=== PATIENT | female | born 1935 | race Asian ===

== ENCOUNTER 2022-07-06 14:15 | Outpatient (CLI) | payer OTHER, SELFPAY ==
--- NOTE | 2022-07-06 14:23 | MM_ITS ---
WS: [id number] BILATERAL 3D TOMOSYNTHESIS DIGITAL DIAGNOSTIC MAMMOGRAPHY WITH CAD CLINICAL INFORMATION: RT BREAST LUMP HISTORY: RIGHT breast lump COMPARISON: None. TECHNIQUE: Bilateral CC, MLO, and ML views. FINDINGS: Scattered fibroglandular densities bilaterally. Spiculated asymmetric density upper outer RIGHT breas t posterior depth. Palpable concern with associated calcifications. This measures approximately 1.7 x 1.4 CM.Suspicious heterogeneous calcification within the central aspect of the lesion. Spiculated ma ss abuts the chest wall posteriorly. Consider MRI to evaluate for chest wall invasion. Additional ill-defined mass posterior to the RIGHT nipple measuring 1.5 cm. This corresponds to inc idental ductal ectasia on the ultrasound. Vascular calcification. LEFT breast is unremarkable. Ultrasound described below. ULTRASOUND BREAST RIGHT TECHNIQUE: Ultrasound right breast focused area of concern. CLINICAL INFORMATION: RT BREAST LUMP FINDINGS: Ultrasound RIGHT breast 11:00 position 1 cm from the nipple near a palpable concern. There is a solid irregular mass with vascularity measuring 2.1 x 1.1 x 1.8 cm highly suspicious for neoplasm. This ex tends superficial just deep to the skin surface. In addition, this abuts the underlying pectoralis mu scle with indentation suspicious for chest wall involvement. Consider MRI breast for better anatomic detail. Ultrasound posterior to the RIGHT nipple demonstrates ductal ectasia. This has a benign appearance. Normal lymph nodes in the RIGHT axilla. MM/[id number] IMPRESSION:Spiculated mass abuts the pectoralis muscle posteriorly. Consider MR I to evaluate for chest wall invasion. BI-RADS: 5-Highly Suggestive of Malignancy FOLLOW UP: US Guided Biopsy Recommended Recommend ultrasound-guided biopsy of the RIGHT breast mass
== END 2022-07-06 14:16 | disposition home or self-care (01) ==
LOC: RAD 14:18
PROVIDERS: PCP Internal Medicine; Visit Provider Internal Medicine
DX: N63.11 Unspecified lump in the right breast, upper outer quadrant (principal)
CPT/HCPCS: 76642; 77062; G0279

== ENCOUNTER 2022-08-12 10:53 | Outpatient (CLI) | payer OTHER, SELFPAY ==
--- NOTE | 2022-08-12 11:13 | US_ITS ---
WS: [id number] ULTRASOUND-GUIDED RIGHT BREAST BIOPSY HISTORY: ABNORMAL MAMMO, mass at 11:00 RIGHT breast. COMPARISON: 07/06/2022 Procedure, risks and complications are explained to the patient. Medications are reviewed. Consent is obtained. The mass in the RIGHT breast is localized with ultrasound. Mass localizes to 11:00, 1 cm from the nip ple. Skin is cleansed with ChloraPrep and anesthetized with 1% buffered lidocaine. Small dermatome is made. Under sterile conditions mass is biopsied with a 14-gauge Achieve needle. Multiple core biopsi es are performed. Material placed in formalin and sent to pathology for review. No complications enco untered. Breast tissue marker (Bard ultrasound enhanced ribbon): Single. Patient left the radiology suite with no complications. Patient is instructed to return to [facility] concerns. US/[place] [id number] IMPRESSION: 1. Uncomplicated core needle biopsy RIGHT breast mass at 11:00. 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 Breast profile t o be reported separately. RECOMMENDATION: Follow-up with oncology and breast surgeon.
[2022-08-17 10:57] LABS: Breast Profile ER,PR,HER2,Ki-6 See Report
== END 2022-08-12 10:54 | disposition home or self-care (01) ==
PROVIDERS: PCP Internal Medicine; Visit Provider Internal Medicine
DX: C50.411 Malignant neoplasm of upper-outer quadrant of right female breast (principal); N63.11 Unspecified lump in the right breast, upper outer quadrant; R92.8 Other abnormal and inconclusive findings on diagnostic imaging of breast
CPT/HCPCS: 19083; 88305; 88361; 88374

== ENCOUNTER 2022-09-09 14:35 | Oncology outpatient (recurring) (ONCR) | payer OTHER, SELFPAY | END 2022-09-21 23:59 | disposition home or self-care (01) | PROVIDERS: PCP Internal Medicine; Visit Provider Internal Medicine Hematology & Oncology | DX: Z53.9 Procedure and treatment not carried out, unspecified reason (principal) ==

== ENCOUNTER 2022-09-14 07:14 | Day surgery (SDC) | payer OTHER, SELFPAY ==
[2022-09-11 09:04] VITALS: BMI 19.2
[2022-09-14] VITALS (10 sets, daily range): BP systolic 103–146; BP diastolic 58–77; PULSE 66–76; RESP 10–18; TEMP 36.1–36.3; O2SAT 94–100
[2022-09-14] MEDS: sodium chloride 0.9% 1,000 ML 100 ML IV (07:38)
[2022-09-14] MEDS: sodium chloride 0.9% 1,000 ML 30 ML IV (07:49)
--- NOTE | 2022-09-14 08:06 | ANES.PREANE2 ---
Pre-Anesthetic Assessment Height/Weight: Height 1.45 m Weight 40.37 kg Temp Pulse Resp BP Pulse Ox O2 Del Method 97.3 F L 66 18 146/77 99 Room Air 09/14/22 07:35 09/14/22 07:35 09/14/22 07:35 09/14/22 07:35 09/14/22 07:35 09/14/22 07:35 Operation Date: 09/14/22 08:55 [place] [id number] right breast simple mastectomy with sentinel lymph node biopsy C50.911,(Right) - Alex Santana DO s Sentinal Lymph Node Biopsy(Right) - Alex Santana DO Familial anesthetic complications: None Was Beta Johnathan taken within 24 hours: N/A Was Clonidine taken within 24 hours: N/A Last intake: Intake Last Liquid Date 09/13/22 Last Liquid Time 21:00 Last Solid Date 09/13/22 Last Solid Time 20:00 Social No alcohol and No tobacco Exam alert, oriented x 3, clear to auscultation bilaterally and regular rate & rhythm Airway Mallampati: Class III Dentition: full GI Gastroesophageal Reflux Disease Anesthetic Plan ASA status: 2 Anesthesia: General Risk of > 500 ml blood loss (7ml/kg in children): No Medications/Allergies Home Medications Medication Instructions Recorded Confirmed Last Taken Type mirtazapine 7.5 mg tablet See Rx Instructions PO DAILY 09/09/22 09/14/22 09/13/22 History omeprazole 20 mg capsule,delayed 20 mg PO DAILY 09/09/22 09/14/22 09/11/22 History release Allergies Allergy/AdvReac Type Severity Reaction Status Date / Time No Known Allergies Allergy Verified 09/14/22 07:28 Current Medications Generic Name Dose Route Start Last Admin Trade Name Freq PRN Reason Stop Dose Admin Sodium Chloride 1,000 mls @ 30 mls/hr 09/14/22 07:30 09/14/22 07:49 Sodium Chloride 0.9% IV 09/15/22 07:29 30 mls/hr .Q24H LORIE Administration PFSH Anesthesia Medical History No pertinent past medical history Denies diabetes, asthma, hypertension, seizures, DVT/PE PCP: None Surgical History No history of previous surgery Family History Daughter Thyroid condition Denies family history of Colon cancer Ovarian cancer Diabetes Heart disease Hyperlipidemia Breast cancer Hypertension Uterine cancer Stroke Data Anesthesia Cardiac Studies: No Data to Display
--- NOTE | 2022-09-14 08:46 | W.PM.OPSUD ---
Surgery/Procedure H&P Update DATE OF PROCEDURE: September 14, 2022 DATE H&P PERFORMED: 09/01/22 H&P UPDATE INFORMATION: I have reviewed H&P completed within last 30 days, I have examined patient prior to procedure and No changes to prior documentation PLANNED PROCEDURE: Operation Date: 09/14/22 08:55 Proposed Procedures p [id number] right breast simple mastectomy with sentinel lymph node biopsy C50.911,(Right) - Alex Santana DO s Sentinal Lymph Node Biopsy(Right) - Alex Santana DO
--- NOTE | 2022-09-14 08:51 | PC.NURSE ---
Right breast sentinel node injection of 0.93 mCi Tc99m Tilmanocept by Qi Argueta [facility] completed at 0820 with no complications.
[2022-09-14] MEDS: ceFAZolin 2,000 MG in sodium chloride 0.9% (plus) 50 ML 100 MG IV (09:29)
[2022-09-14] MEDS: lidocaine-epi 2% 20 mL INJ INJECTION (09:43)
[2022-09-14] MEDS: isosulfan blue 10 mg/mL SDV 5mL 50 MG SUBCUT (09:43)
--- NOTE | 2022-09-14 10:33 | P.OP_ITS ---
Operative Report Date of procedure: September 14, 2022 Pre-op diagnosis: Right breast cancer Post-op diagnosis: same Procedure done: Right simple mastectomy with sentinel lymph node biopsy Implants: Vistaseal Specimens removed/disposition: Right axillary sentinel lymph node biopsy-3 nodes Right simple mastectomy Surgeon: Dr. Alex Santana DO Anesthesia: General Estimated blood loss (mL): 50 Complications: None apparent Brief History: This very pleasant 87-year-old female was found to have right breast cancer. We decided to proceed with right simple mastectomy and sentinel lymph node biopsy. The risk and benefits were explained and documented. Procedure: The patient was wheeled into the operative room and placed on the OR table in the supine position. The right breast and axilla were inspected prepped and draped in the usual sterile fashion. A timeout was performed. All present were in agreement. Lymphazurin blue was injected subareolarly and into the mass. These areas were massaged for 5 minutes. An oblique excision was made from proximal to the right axilla to lateral to the sternum, encompassing the nipple. The lateral dissection was performed first. I dissected down to the latissimus dorsi and superior to the fascia using Bovie cautery. Using Bovie cautery and [place] counter I looked for a sentinel node. The [place] counter at the mass was registering at 905 and 3 sentinel lymph nodes were identified measuring 97, 99 and 112. The lymph nodes were relatively small and not blue.. The lymph nodes were removed with Bovie cautery, clipping any small arteries, and sent to pathology. Attention was then brought back to the mastectomy. The ellipse excision thatwas made with a 10 blade scalpel was carried down to the fatty tissue with Bovie cautery. I started with the superior flap and removed all the breast tissue using Bovie cautery. This was carried up to the clavipectoral fascia and down to the pectoralis major. All breast tissue was removed laterally to the latissimus dorsi and proximally to the sternum. I then went to the posterior flap all breast tissue was removed with Bovie cautery down to the inframammary fold. The breast was quite small and the mass was very large in comparison. I did not encounter the mass but was close to it on the posterior margin.. I carried the dissection down to the pectoralis major and removed all the breast tissue in its entirety. Hemostasis was achieved with electrocautery and medium sized clips. The breast was removed and a single stitch thakur superior and long stitch to rudi lateral. Skin was anterior.. The specimen was passed off. The surgical field was irrigated and suctioned. There was no signs of bleeding. Vistaseal was placed over the surgical field, as was Wil.. Dermis was then approximated with 3-0 Vicryl in interrupted fashion. Skin was then closed with 4-0 Vicryl in a subcuticular running fashion. Patient tolerated the procedure well and was wheeled in the postoperative anesthesia care unit in good condition.
--- NOTE | 2022-09-14 11:55 | ANE.PACU2 ---
Inpatient post-anesthesia follow up: Airway intact: Yes Vital signs: Temperature 97 F Pulse Rate 73 Respiratory Rate 16 Blood Pressure 107/63 Pulse Oximetry 94 Oxygen Delivery Me thod Room Air Oxygen Flow Rate 6 Fraction of Inspir ed Oxygen Hydration adequate: Yes Nausea and vomiting: No Pain level: 1 Mental status: Baseline
[2022-09-14] MEDS: HYDROcodone-acetaminophen 5-325 mg Tablet 1 TAB PO (12:03)
== END 2022-09-14 12:33 | disposition home or self-care (01) ==
PROVIDERS: PCP Internal Medicine; Visit Provider Surgery
PROC: (CPT 19303; principal; 2022-09-14 08:55)
PROC: (CPT 19303; 2022-09-14 08:55)
DX: C50.411 Malignant neoplasm of upper-outer quadrant of right female breast (principal); Z17.0 Estrogen receptor positive status [ER+]; K21.9 Gastro-esophageal reflux disease without esophagitis
CPT/HCPCS: 19303; 38525; 38792; 88307; 88309; 88342; A9520; J0690; J1100; J2371; J2405; J2704; J3010; J7030; Q9968

== ENCOUNTER 2022-09-23 14:37 | Oncology outpatient (recurring) (ONCR) | payer OTHER, MEDICAID, SELFPAY ==
[2022-09-23 14:39] VITALS: BP 111/67; PULSE 77; RESP 16; TEMP 36.7; O2SAT 98
[2022-09-23 14:43] VITALS: BMI 19.7
[2022-09-23 14:46] LABS: Basophils % 0.6 %; Eosinophils # 0.1 10^3/uL (0.0-0.8); Eosinophils % 2.7 %; Hematocrit 37.2 % (37.0-47.0); Hemoglobin 12.1 g/dL (11.5-15.3); Lymphocytes # 1.3 10^3/uL (0.8-4.8); Lymphocytes % 24.5 %; Mean Corpuscular HGB Conc 32.5 g/dL (30.0-36.0); Mean Corpuscular Hemoglobin 32.8 pg (28.0-34.0); Mean Corpuscular Volume 100.8 fl (81-99); Monocytes # 0.4 10^3/uL (0.2-0.9); Monocytes % 7.8 %; Neutrophils # 3.38 10^3/uL (1.8-7.7); Nucleated Red Blood Cells % 0 %; Platelet Count 252 10^3/cmm (130-400); Red Blood Count 3.69 10^6/uL (4.1-5.3); Red Cell Distribution Width 12.6 % (12.1-15.1); White Blood Count 5.3 10^3/uL (4.0-10.0)
[2022-09-23 15:12] LABS: Alanine Aminotransferase 45 U/L (0-33); Albumin Level 3.6 g/dL (3.5-5.2); Alkaline Phosphatase 61 U/L (35-105); Anion Gap 10.5 (5-19); Aspartate Amino Transferase 36 U/L (0-32); Blood Urea Nitrogen 26 mg/dL (8-23); Calcium 8.4 mg/dL (8.5-10.5); Carbon Dioxide 28 mmol/L (22-29); Chloride 104 mmol/L (98-107); Globulin 2.7 g/dL (1.3-4.6); Glucose 126 mg/dL (65-115); Osmolality Calculated 292 mOsm/kg (285-295); Potassium 4.5 mmol/L (3.5-5.1); Sodium 138 mmol/L (136-145); Total Bilirubin 0.2 mg/dL (0.15-1.2); Total Protein 6.3 g/dL (6.6-8.7)
[2022-09-24 09:30] LABS: 25 Hydroxy Vitamin D 34 ng/mL (30-100)
== END 2022-10-22 23:59 | disposition home or self-care (01) ==
PROVIDERS: Internal Medicine Medical Oncology; PCP Internal Medicine; Visit Provider Internal Medicine Hematology & Oncology
DX: M81.0 Age-related osteoporosis without current pathological fracture (principal); C50.911 Malignant neoplasm of unspecified site of right female breast; Z53.9 Procedure and treatment not carried out, unspecified reason
CPT/HCPCS: 36415; 80053; 82306; 85025

== ENCOUNTER 2022-11-02 20:47 | Emergency (ER) | payer OTHER, MEDICAID, SELFPAY ==
[2022-11-02 20:51] VITALS: BP 96/61; PULSE 89; RESP 16; TEMP 36.4; O2SAT 96; BMI 19.5
[2022-11-02 22:27] LABS: Basophils % 0.3 %; Eosinophils # 0.1 10^3/uL (0.0-0.8); Eosinophils % 1.2 %; Hematocrit 44.6 % (36-47); Lymphocytes # 0.3 10^3/uL (0.8-4.8); Lymphocytes % 4.1 %; Mean Corpuscular HGB Conc 32.5 g/dL (30-55); Mean Corpuscular Hemoglobin 32.8 pg (27-33); Mean Corpuscular Volume 100.9 fl (85-98); Mean Platelet Volume 9.8 fL (7.4-10.4); Monocytes # 0.5 10^3/uL (0.2-0.9); Neutrophils # 6.44 10^3/uL (1.8-7.7); Neutrophils % 87.3 %; Nucleated Red Blood Cells % 0 %; Platelet Count 195 10^3/cmm (157-399); Red Blood Count 4.42 10^6/uL (3.85-5.65); Red Cell Distribution Width 12.3 % (12.1-15.1); White Blood Count 7.38 10^3/uL (3.29-11.43)
--- NOTE | 2022-11-02 22:36 | ED_ITS ---
HPI - Nausea/Vomiting/Diarrhea General: Chief complaint: Nausea/Vomiting/Diarrhea Stated complaint: vomiting Time Seen by Provider: 11/02/22 22:31 Limitations: language barrier (Daughter at bedside acting as diplomatic interpreter/translator) History of Present Illness: Patient states she is having nausea vomiting diarrhea at least 3 episodes of each since approximately 6 PM this afternoon. Patient says this is caused her to be very weak with no energy. Patient does have a history of breast cancer and has had a recent double mastectomy Review of Systems General: Reports: 10 or more systems reviewed and unremarkable except in HPI and below PFSH ED PFSH: Medical History Breast cancer GERD (gastroesophageal reflux disease) Osteoporosis Uterovaginal prolapse Surgical History History of right breast biopsy (08/12/22) History of right mastectomy (09/14/22) Right simple mastectomy with axillary sentinel lymph node biopsy Family History Daughter Thyroid condition Denies family history of Colon cancer Ovarian cancer Diabetes Heart disease Hyperlipidemia Breast cancer Hypertension Uterine cancer Stroke Social History Smoking and tobacco status: never smoked Alcohol intake: never Substance/Drug Use: never Physical Exam Const: COMMON NORMALS: no acute distress, average body habitus, patient oriented x3, no limitations, healthy appearing, alert and well nourished HENMT: COMMON NORMALS: normocephalic, atraumatic, hearing grossly normal bilaterally, external ears normal, Normal external nose present and moist oral mucous membranes HEAD & SCALP: normocephalic and atraumatic NOSE: Normal external nose present EXTERNAL EAR: Yes external ears normal Eye: COMMON NORMALS: Equal, round and reactive pupils present, EOMs intact bilaterally, conjunctivae normal and no scleral icterus CONJUNCTIVA: Yes conjunctivae normal PUPIL: Yes Equal, round and reactive pupils present Neck/C-Spine: COMMON NORMALS: full ROM, no lymphadenopathy, supple, no meningeal signs, no JVD and Thyroid normal THYROID: Thyroid normal Resp: COMMON NORMALS: normal respiratory effort, No retractions, No use of accessory muscles and clear to auscultation bilaterally AUSCULTATION: clear to auscultation bilaterally Cardio: COMMON NORMALS: no JVD, regular rate, regular rhythm, S1 normal heart sound present, S2 normal heart sound present, No gallops present (Cardio), No cl icks present (Cardio), No murmurs present (Cardio) and No rub (Cardio) RATE: regular rate RHYTHM: regular rhythm HEART SOUNDS: S1 normal heart sound present and S2 normal heart sound present GI: COMMON NORMALS: Normal to inspection, nondistended, normoactive bowel sounds present, Soft to palpation, non-tender, No hepatosplenomegaly present and no masses PALPATION: Yes Soft to palpation and Yes No hepatosplenomegaly present : COMMON NORMALS: Yes no CVA tenderness BLADDER/KIDNEY EXAM: Yes no CVA tenderness Back/Pelvis: COMMON NORMALS: no CVA tenderness Neuro: COMMON NORMALS: patient oriented x3 SENSORIUM/ORIENTATION: Yes alert MENINGEAL SIGNS: Yes no meningeal signs Course Vital Signs: Vital signs: Vital Signs Temperature 97.6 F 11/02/22 20:51 Pulse Rate 71 11/02/22 23:35 Respiratory Rate 16 11/02/22 23:35 Blood Pressure 150/69 11/02/22 23:35 Pulse Oximetry 97 11/02/22 23:35 Oxygen Delivery Me thod Room Air 11/02/22 23:35 MDM - Nausea/Vomiting/Diarrhea Medical Decision Making Patient received 4 mg Zofran and a liter normal saline while waiting her lab work to come back which was essentially benign. Patient states she feels much better and is ready to go home. Patient be discharged home with a diagnosis of gastroenteritis Differential Diagnosis Likely gastroenteritis; Unlikely traveler's diarrhea, food poisoning, clostridium difficile infection, drug-induced nausea and vomiting or dehydration Medical Records I reviewed the patient's medical records. Lab Data I reviewed the patient's lab results. 11/02/22 22:07 11/02/22 22:07 Laboratory Results WBC 7.38 10^3/uL (3.29-11.43) 11/02/22 22:07 RBC 4.42 10^6/uL (3.85-5.65) 11/02/22 22:07 Hgb 14.50 g/dL (11.27-16.99) 11/02/22 22:07 Hct 44.6 % (36-47) 11/02/22 22:07 MCV 100.9 fl (85-98) H 11/02/22 22:07 MCH 32.8 pg (27-33) 11/02/22 22:07 MCHC 32.5 g/dL (30-55) 11/02/22 22:07 RDW 12.3 % (12.1-15.1) 11/02/22 22:07 Plt Count 195 10^3/cmm (157-399) 11/02/22 22:07 MPV 9.8 fL (7.4-10.4) 11/02/22 22:07 Neut % (Auto) 87.3 % 11/02/22 22:07 Lymph % (Auto) 4.1 % 11/02/22 22:07 [place] % (Auto) 7.0 % 11/02/22 22:07 Eos % (Auto) 1.2 % 11/02/22 22:07 Baso % (Auto) 0.3 % 11/02/22 22:07 Neut # (Auto) 6.44 10^3/uL (1.8-7.7) 11/02/22 22:07 Lymph # (Auto) 0.3 10^3/uL (0.8-4.8) L 11/02/22 22:07 [place] # (Auto) 0.5 10^3/uL (0.2-0.9) 11/02/22 22:07 Eos # (Auto) 0.1 10^3/uL (0.0-0.8) 11/02/22 22:07 Baso # (Auto) 0.0 10^3/uL (0.0-0.1) 11/02/22 22:07 Nucleated RBC % (auto) 0 % 11/02/22 22:07 Nucleated RBCs # 0.0 /100WBC 11/02/22 22:07 Sodium 139 mmol/L (136-145) 11/02/22 22:07 Potassium 4.2 mmol/L (3.5-5.1) 11/02/22 22:07 Chloride 105 mmol/L (98-107) 11/02/22 22:07 Carbon Dioxide 25 mmol/L (22-29) 11/02/22 22:07 Anion Gap 13.2 (5-19) 11/02/22 22:07 BUN 32 mg/dL (8-23) H 11/02/22 22:07 Creatinine 0.7 mg/dL (0.5-0.9) 11/02/22 22:07 GFR Calculation Not Reportable 11/02/22 22:07 Glucose 177 mg/dL (65-115) H 11/02/22 22:07 Calculated Osmolality 299 mOsm/kg (285-295) H 11/02/22 22:07 Calcium 8.7 mg/dL (8.5-10.5) 11/02/22 22:07 Magnesium 2.2 mg/dL (1.7-2.3) 11/02/22 22:07 Total Bilirubin 0.5 mg/dL (0.15-1.2) 11/02/22 22:07 AST 24 U/L (0-32) 11/02/22 22:07 ALT 19 U/L (0-33) 11/02/22 22:07 Alkaline Phosphatase 62 U/L (35-105) 11/02/22 22:07 Total Protein 7.2 g/dL (6.6-8.7) 11/02/22 22:07 Albumin 4.1 g/dL (3.5-5.2) 11/02/22 22:07 Globulin 3.1 g/dL (1.3-4.6) 11/02/22 22:07 Urine Color Yellow (Yellow) 11/02/22 23:46 Urine Appearance Clear (CLEAR) 11/02/22 23:46 Urine pH 5 (5-7) 11/02/22 23:46 Ur Specific [place] 1.020 (1.005-1.030) 11/02/22 23:46 Urine Protein Neg (Negative) 11/02/22 23:46 Urine Glucose (UA) Norm (Normal) 11/02/22 23:46 Urine Ketones Negative (Negative) 11/02/22 23:46 Urine Blood Neg (Negative) 11/02/22 23:46 Urine Nitrate Negative (Negative) 11/02/22 23:46 Urine Bilirubin Neg (Negative) 11/02/22 23:46 Urine Urobilinogen Neg mg/dL (Negative) 11/02/22 23:46 Ur Leukocyte Esterase Negative (Negative) 11/02/22 23:46 Discharge Plan Discharge Patient Disposition: Home Clinical Impression: Gastroenteritis Condition: Stable Prescriptions: No Action omeprazole 20 mg capsule,delayed release(DR/EC) 20 mg PO DAILY mirtazapine 7.5 mg tablet See Rx Instructions PO DAILY Rx Instructions: dosage unknown orally daily; hydrocodone-acetaminophen 5-325 mg tablet 1 tab PO Q6H PRN (Reason: pain) Qty: 20 0RF Colace 100 mg capsule 100 mg PO BID Qty: 14 0RF Discharge Orders: Discharge ED (Routine); Ordered 11/03/22 Ordered By: Primo Hu Referrals: Aroldo Burger DO [Primary Care Provider] - 1 week Patient Instructions: Gastroenteritis (ED) Activity Restrictions/Additional Instructions: Please push plenty of clear fluids and advance diet as tolerated. Please follow-up with family practice physician within the next week or sooner as needed for further evaluation and treatment. Coding Level of Care Code ED Technical Cable Jointer for Masha Rivera
[2022-11-02] MEDS: ondansetron 2 mg/ML SDV 2 mL 4 MG IVP (22:46)
[2022-11-02] MEDS: sodium chloride 0.9% 1,000 ML 999 ML IV (22:47)
[2022-11-02 23:00] LABS: Magnesium 2.2 mg/dL (1.7-2.3)
[2022-11-02 23:02] LABS: Alanine Aminotransferase 19 U/L (0-33); Albumin Level 4.1 g/dL (3.5-5.2); Alkaline Phosphatase 62 U/L (35-105); Anion Gap 13.2 (5-19); Aspartate Amino Transferase 24 U/L (0-32); Blood Urea Nitrogen 32 mg/dL (8-23); Calcium 8.7 mg/dL (8.5-10.5); Carbon Dioxide 25 mmol/L (22-29); Chloride 105 mmol/L (98-107); Globulin 3.1 g/dL (1.3-4.6); Glucose 177 mg/dL (65-115); Osmolality Calculated 299 mOsm/kg (285-295); Potassium 4.2 mmol/L (3.5-5.1); Sodium 139 mmol/L (136-145); Total Bilirubin 0.5 mg/dL (0.15-1.2); Total Protein 7.2 g/dL (6.6-8.7)
[2022-11-02 23:35] VITALS: BP 150/69; PULSE 71; RESP 16; O2SAT 97
[2022-11-02 23:50] LABS: Add Urine Microscopic? NO; Charge for UA Resulting for Rev
[2022-11-02 23:55] LABS: Bilirubin Urine Neg (Negative); Blood Urine Neg (Negative); Glucose Urine UA Norm (Normal); Ketones Urine Negative (Negative); Leukocyte Esterase Urine Negative (Negative); Nitrate Urine Negative (Negative); Protein Urine Neg (Negative); Urine Appearance Clear (CLEAR); Urine Color Yellow (Yellow); Urobilinogen Urine Neg (Negative); pH Urine 5 (5-7)
== END 2022-11-03 00:19 | disposition home or self-care (01) ==
PROVIDERS: Emergency Provider Emergency Medicine; PCP Internal Medicine
DX: K52.9 Noninfective gastroenteritis and colitis, unspecified (principal); Z85.3 Personal history of malignant neoplasm of breast
CPT/HCPCS: 36415; 80053; 81003; 83735; 85025; 96361; 96374; 99284; J2405; J7030

== ENCOUNTER 2022-12-16 14:27 | Oncology outpatient (recurring) (ONCR) | payer OTHER, MEDICARE, MEDICAID, SELFPAY ==
[2022-12-16 14:34] VITALS: BP 106/51; PULSE 81; RESP 16; TEMP 36.3; O2SAT 96
[2022-12-16 14:48] LABS: Basophils % 0.6 %; Eosinophils # 0.1 10^3/uL (0.0-0.8); Eosinophils % 2.3 %; Hematocrit 39.1 % (36-47); Lymphocytes # 1.5 10^3/uL (0.8-4.8); Lymphocytes % 30.2 %; Mean Corpuscular HGB Conc 32.2 g/dL (30-55); Mean Corpuscular Hemoglobin 31.6 pg (27-33); Mean Platelet Volume 9.4 fL (7.4-10.4); Monocytes # 0.5 10^3/uL (0.2-0.9); Monocytes % 9.9 %; Neutrophils # 2.78 10^3/uL (1.8-7.7); Nucleated Red Blood Cells % 0 %; Platelet Count 212 10^3/cmm (157-399); Red Blood Count 3.99 10^6/uL (3.85-5.65); Red Cell Distribution Width 12.3 % (12.1-15.1); White Blood Count 4.87 10^3/uL (3.29-11.43)
[2022-12-16 15:05] LABS: Alanine Aminotransferase 12 U/L (0-33); Alkaline Phosphatase 56 U/L (35-105); Anion Gap 12.7 (5-19); Aspartate Amino Transferase 18 U/L (0-32); Blood Urea Nitrogen 19 mg/dL (8-23); Calcium 9.1 mg/dL (8.5-10.5); Carbon Dioxide 28 mmol/L (22-29); Chloride 104 mmol/L (98-107); Globulin 2.9 g/dL (1.3-4.6); Glucose 125 mg/dL (65-115); Osmolality Calculated 294 mOsm/kg (285-295); Potassium 4.7 mmol/L (3.5-5.1); Sodium 140 mmol/L (136-145); Total Bilirubin 0.4 mg/dL (0.15-1.2); Total Protein 6.9 g/dL (6.6-8.7)
== END 2022-12-22 23:59 | disposition home or self-care (01) ==
LOC: ONCMED 14:28
PROVIDERS: Internal Medicine Medical Oncology; PCP Internal Medicine; Visit Provider Internal Medicine Medical Oncology
DX: C50.411 Malignant neoplasm of upper-outer quadrant of right female breast
CPT/HCPCS: 36415; 80053; 85025

== ENCOUNTER 2023-04-05 12:43 | Oncology outpatient (recurring) (ONCR) | payer MEDICARE, MEDICAID, SELFPAY ==
[2023-04-02 11:16] LABS: Basophils % 0.7 %; Eosinophils # 0.1 10^3/uL (0.0-0.8); Eosinophils % 2.5 %; Lymphocytes % 24.9 %; Mean Corpuscular HGB Conc 32.8 g/dL (30-55); Mean Corpuscular Hemoglobin 32.2 pg (27-33); Mean Corpuscular Volume 98.3 fl (85-98); Mean Platelet Volume 9.8 fL (7.4-10.4); Monocytes # 0.4 10^3/uL (0.2-0.9); Monocytes % 8.6 %; Neutrophils # 2.56 10^3/uL (1.8-7.7); Neutrophils % 63.1 %; Nucleated Red Blood Cells % 0 %; Platelet Count 233 10^3/cmm (157-399); Red Blood Count 4.07 10^6/uL (3.85-5.65); Red Cell Distribution Width 12.3 % (12.1-15.1); White Blood Count 4.06 10^3/uL (3.29-11.43)
[2023-04-02 11:32] LABS: Alanine Aminotransferase 20 U/L (0-33); Albumin Level 3.8 g/dL (3.5-5.2); Alkaline Phosphatase 63 U/L (35-105); Anion Gap 11.3 (5-19); Aspartate Amino Transferase 25 U/L (0-32); Blood Urea Nitrogen 24 mg/dL (8-23); Calcium 8.8 mg/dL (8.5-10.5); Carbon Dioxide 29 mmol/L (22-29); Chloride 102 mmol/L (98-107); Globulin 3.4 g/dL (1.3-4.6); Glucose 79 mg/dL (65-115); Osmolality Calculated 289 mOsm/kg (285-295); Potassium 4.3 mmol/L (3.5-5.1); Sodium 138 mmol/L (136-145); Total Bilirubin 0.5 mg/dL (0.15-1.2); Total Protein 7.2 g/dL (6.6-8.7)
== END 2023-04-22 23:59 | disposition home or self-care (01) ==
PROVIDERS: Nurse Practitioner Family; PCP Internal Medicine; Visit Provider Internal Medicine Medical Oncology
DX: C50.411 Malignant neoplasm of upper-outer quadrant of right female breast (principal); Z17.0 Estrogen receptor positive status [ER+]; Z90.11 Acquired absence of right breast and nipple; R22.2 Localized swelling, mass and lump, trunk
CPT/HCPCS: 36415; 80053; 85025; 99214

== ENCOUNTER 2023-04-09 11:57 | Outpatient (CLI) | payer MEDICARE, MEDICAID, SELFPAY ==
--- NOTE | 2023-04-09 12:30 | US_ITS ---
WS: [id number] Ultrasound chest, limited. HISTORY: Chest wall palpable nodule. Prior mastectomy. Ultrasound is directed along the chest wall at the site of the palpable abnormality. There is an area of shadowing which may be partially calcified mass associated with the palpable abnormality. This so ft tissue nodule measures 5.6 mm and is in the superficial soft tissues anterior to a rib. No additio nal abnormalities. IMPRESSION: There is a focal area of shadowing and at least partial calcification in the soft tissues of the RIGH T chest wall measuring 5.6 mm. Very nonspecific by ultrasound. This can be further evaluated by chest CT.
== END 2023-04-09 11:58 | disposition home or self-care (01) ==
LOC: RAD 11:58
PROVIDERS: PCP Internal Medicine; Visit Provider Internal Medicine Medical Oncology
DX: C50.411 Malignant neoplasm of upper-outer quadrant of right female breast (principal); R22.2 Localized swelling, mass and lump, trunk; Z90.11 Acquired absence of right breast and nipple
CPT/HCPCS: 76604

== ENCOUNTER 2023-06-01 15:42 | Observation (INO) | payer MEDICARE, MEDICAID, SELFPAY ==
--- NOTE | 2023-05-31 11:18 | ANES.PREANE2 ---
Pre-Anesthetic Assessment Height/Weight: Height 1.42 m Operation Date: 06/01/23 11:50 Proposed Procedures p Total Vaginal Hysterectomy(Not Applicable) - Finesse Vance MD s Colporrhaphy Anterior and Posterior(Not Applicable) - Finesse Vance MD s Sling Single Incision Sling(Not Applicable) - Finesse Vance MD s Salpingo-Oophorectomy (Vaginal)(Bilateral) - Finesse Vance MD Familial anesthetic complications: NOne Social No alcohol and No tobacco Exam alert, oriented x 3, clear to auscultation bilaterally and regular rate & rhythm Airway Mallampati: Class I Dentition: full GI Gastroesophageal Reflux Disease Anesthetic Plan ASA status: 2 Anesthesia: General Risk of > 500 ml blood loss (7ml/kg in children): No Medications/Allergies Home Medications Medication Instructions Recorded Confirmed Last Taken Type mirtazapine 7.5 mg tablet See Rx Instructions PO DAILY 09/09/22 05/31/23 05/31/23 History omeprazole 20 mg capsule,delayed 20 mg PO DAILY 09/09/22 05/31/23 05/31/23 History release docusate sodium 100 mg capsule 100 mg PO BID #14 caps 09/14/22 05/27/23 Unknown Rx (Colace) Allergies Allergy/AdvReac Type Severity Reaction Status Date / Time No Known Allergies Allergy Verified 05/27/23 11:31 [facility] Anesthesia Medical History GERD (gastroesophageal reflux disease) Osteoporosis Breast cancer Uterovaginal prolapse Surgical History History of right mastectomy (09/14/22) Right simple mastectomy with axillary sentinel lymph node biopsy History of right breast biopsy (08/12/22) Family History Daughter Thyroid disease Denies family history of Colon cancer Ovarian cancer Diabetes Heart disease Hyperlipidemia Breast cancer Hypertension Uterine cancer Stroke Social History Smoking and tobacco/nicotine status: never used tobacco/nicotine Alcohol intake: never Substance/Drug Use: never Data Anesthesia Cardiac Studies: No Data to Display
[2023-05-31 11:59] LABS: Basophils % 0.4 %; Eosinophils # 0.1 10^3/uL (0.0-0.8); Eosinophils % 2.5 %; Lymphocytes % 20.7 %; Mean Corpuscular Hemoglobin 32.5 pg (27-33); Mean Corpuscular Volume 98.5 fl (85-98); Mean Platelet Volume 10.1 fL (7.4-10.4); Monocytes # 0.5 10^3/uL (0.2-0.9); Monocytes % 9.8 %; Neutrophils # 3.24 10^3/uL (1.8-7.7); Neutrophils % 66.4 %; Nucleated Red Blood Cells % 0 %; Platelet Count 227 10^3/cmm (157-399); Red Blood Count 4.06 10^6/uL (3.85-5.65); Red Cell Distribution Width 12.6 % (12.1-15.1); White Blood Count 4.88 10^3/uL (3.29-11.43)
[2023-05-31 12:11] LABS: Add Urine Microscopic? YES; Bilirubin Urine Neg (Negative); Blood Urine Neg (Negative); Glucose Urine UA Norm (Normal); Ketones Urine Negative (Negative); Leukocyte Esterase Urine Trace (Negative); Nitrate Urine Negative (Negative); Protein Urine Neg (Negative); Urine Appearance Clear (CLEAR); Urine Color Yellow (Yellow); Urobilinogen Urine Norm (Negative); pH Urine 5 (5-7)
[2023-05-31 12:12] LABS: Add Urine Culture? No; Bacteria Urine TRACE /hpf; Mucus Urine TRACE /hpf; RBC Urine 0-4 /hpf (0-2); Squamous Epithelial Cell Urine 0-4 /hpf (0-5)
[2023-05-31 12:15] LABS: Alanine Aminotransferase 18 U/L (0-33); Albumin Level 3.8 g/dL (3.5-5.2); Alkaline Phosphatase 60 U/L (35-105); Anion Gap 12.3 (5-19); Aspartate Amino Transferase 20 U/L (0-32); Blood Urea Nitrogen 29 mg/dL (8-23); Carbon Dioxide 25 mmol/L (22-29); Chloride 104 mmol/L (98-107); Globulin 3.1 g/dL (1.3-4.6); Glucose 94 mg/dL (65-115); Osmolality Calculated 290 mOsm/kg (285-295); Potassium 4.3 mmol/L (3.5-5.1); Sodium 137 mmol/L (136-145); Total Bilirubin 0.5 mg/dL (0.15-1.2); Total Protein 6.9 g/dL (6.6-8.7)
[2023-06-01] VITALS (15 sets, daily range): BP systolic 89–108; BP diastolic 47–64; PULSE 64–83; RESP 16–18; TEMP 36.1–36.8; O2SAT 95–99; BMI 20.6
[2023-06-01] MEDS: scopolamine 1.5 Patch 1 PATCH TRANSDERMA (11:14)
[2023-06-01] MEDS: sodium chloride 0.9% 1,000 ML 30 ML IV (11:16)
[2023-06-01] MEDS: enoxaparin 30 mg/0.3 mL Syringe SUBCUT (11:26)
--- NOTE | 2023-06-01 11:26 | P.ANESUD_ITS ---
Pre-Anesthetic Update Pre-Anesthetic Assessment: Date of Surgery/Procedure: 06/01/23 Preop Gerri gnosis: Uterovaginal prolapse stage III Proposed Procedure: Operation Date: 06/01/23 12:10 Proposed Procedures p Total Vaginal Hysterectomy(Not Applicable) - Finesse Vance MD s Colporrhaphy Anterior and Posterior(Not Applicable) - Finesse Vance MD s Sling Single Incision Sling(Not Applicable) - Finesse Vance MD s Salpingo-Oophorectomy (Vaginal)(Bilateral) - Finesse Vance MD s Sacrospinous Ligament Suspension Sacrospinous Fixation(Not Applicable) - Finesse Vance MD Any changes to Pre-Anesthetic Assessment?: No Last Intake: Intake Last Liquid Date 05/31/23 Last Liquid Time 23:55 Last Solid Date 05/31/23 Last Solid Time 22:00 Labs Last 48hrs: Short CBC 05/31/23 Range/Units 11:10 WBC 4.88 (3.29-11.43) 10^ 3/uL Hgb 13.20 (11.27-16.99) g/ dL Hct 40.0 (36-47) % MCV 98.5 H (85-98) fl Plt Count 227 (157-399) 10^3/c mm Neut % (Auto) 66.4 % Neut # (Auto) 3.24 (1.8-7.7) 10^3/u L BMP 05/31/23 11:10 Sodium 137 Potassium 4.3 Chloride 104 Carbon Dioxide 25 BUN 29 H Creatinine 0.6 Glucose 94 Calcium 9.0 Liver Function 05/31/23 Range/Units 11:10 Total Bilirubin 0.5 (0.15-1.2) mg/dL AST 20 (0-32) U/L ALT 18 (0-33) U/L Alkaline Phosphata se 60 (35-105) U/L Albumin 3.8 (3.5-5.2) g/dL Urine 05/31/23 Range/Units 11:05 Urine Color Yellow (Yellow) Urine Appearance Clear (CLEAR) Urine pH 5 (5-7) Ur Specific Gravit y 1.020 (1.005-1.030) Urine Protein Neg (Negative) Urine Glucose (UA) Norm (Normal) Urine Ketones Negative (Negative) Urine Nitrate Negative (Negative) Urine Bilirubin Neg (Negative) Ur Leukocyte Clhoe ase Trace H (Negative) Urine RBC 0-4 H (0-2) /hpf Urine WBC 5-10 H (0-5) /hpf Blood Bank 05/31/23 11:10 Blood Type A Positive Rho(D) Type Rh positive Antibody Screen Negative Vitals: Oxygen Delivery Me thod Room Air 06/01/23 10:50 Exam: Pre-Anes Outpt Exam: alert, oriented x 3, clear to auscultation bilaterally and regular rate & rhythm Cardiac Studies: No Data to Display
--- NOTE | 2023-06-01 12:14 | W.PM.OPSUD ---
Surgery/Procedure H&P Update DATE OF PROCEDURE: June 01, 2023 DATE H&P PERFORMED: 05/27/23 H&P UPDATE INFORMATION: I have reviewed H&P completed within last 30 days, I have examined patient prior to procedure and No changes to prior documentation PREOP DIAGNOSIS: Uterovaginal prolapse stage III PLANNED PROCEDURE: Operation Date: 06/01/23 12:10 Proposed Procedures p Total Vaginal Hysterectomy(Not Applicable) - Finesse Vance MD s Colporrhaphy Anterior and Posterior(Not Applicable) - Finesse Vance MD s Sling Single Incision Sling(Not Applicable) - Finesse Vance MD s Salpingo-Oophorectomy (Vaginal)(Bilateral) - MD surya Vargas Sacrospinous Ligament Suspension Sacrospinous Fixation(Not Applicable) - Finesse Vance MD
[2023-06-01] MEDS: ceFAZolin 2,000 MG in sodium chloride 0.9% (plus) 50 ML 100 MG IV (13:21)
[2023-06-01] MEDS: lidocaine-epi 2% PF 1:200,000 20 mL SDV INJECTION (14:01)
--- NOTE | 2023-06-01 15:22 | P.OP_ITS ---
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 Post-op diagnosis: same Procedure done: Total vaginal hysterectomy with bilateral salpingo-oophorectomy Anterior colporrhaphy Mid urethral single incision sling Posterior colporrhaphy Sacrospinous fixation Cystoscopy Specimens removed/disposition: Uterus Left and right fallopian tubes and ovaries Surgeon: Finesse Vance MD Estimated blood loss (mL): 100 IV fluids (mL): 1,000 Urine output (mL): 200 Complications: None Procedure: After obtaining informed consent, the patient was taken to the operating room and placed in the supine position, given general anesthesia, and prepped and draped in sterile fashion. The abdomen, vulva and vagina were prepped and draped in a sterile manner. A time out procedure was performed. The anterior vaginal mucosa beneath the midurethra was infiltrated with 2% lidocaine with epinephrine. A Bookwalter vaginal retractor was placed into the vagina in usual manner visualize the cervix. Cervix was grasped with a single tooth tenaculum and circumferentially infiltrated with 2% lidocaine with epinephrine. Then cervix was circumferentially incised with bovie and the bladder was dissected off the pubovesical cervical fascia anteriorly with a sponge stick and Metzenbaum scissors. The anterior peritoneal reflection was identified and the anterior cul-de-sac was entered sharply with Metzenbaum scissors. The same procedure was performed posteriorly and a posterior colpotomy was made through the posterior cul-de-sac space without difficulty and the posterior blade of the Bookwalter vaginal retractor was advanced posteriorly into the cul-de-sac. At this time, the left and right uterosacral ligaments were isolated and ligated with 0 Vicryl. The LigaSure device was placed over the uterosacral ligaments on either side and was then used in a serial fashion up through the cardinal ligaments bilaterally cross-clamped, cut, and sealed with the LigaSure device. Finally, the uterine arteries were cross-clamped, cut, sealed and ligated with the LigaSure device. Hemostasis was assured. The broad ligaments were then serially clamped, sealed and cut with the LigaSure device on both sides. Excellent hemostasis was vi sualized. Both cornua were clamped, sealed and cut with the LigaSure device. Then the pedicles were then suture ligated with excellent hemostasis. The uterus was excised and submitted for pathologic evaluation. No other abnormalities were noted in the pelvic cavity. Then the right side Infundibular ligament was identified. The ureter was confirmed along the pelvic side wall and peristalsis was noted. The LigaSure device was then used to clamp, sealed and transcepted at middistance, again being sure to be clear of the ureter and the fallopian tube and ovary were removed. The same process was then repeated on the left side. Good hemostasis was assure on both sides. The peritoneum was then closed in a pursestring fashion with 0 Vicryl suture. The vaginal cuff angles were closed with amgezy-fo-puqly #0 Vicryl suture on both sides and transfixed with the ipsilateral cardinal and uterosacral ligaments. The remainder of the vaginal cuff was closed with #0 Vicryl in a running locked fashion. At this time, instruments were removed from the vagina at hemostasis assured. Then proceeded to perform the mid urethral sling. A vertical midline incision was made beneath the midurethra, nearly 1.5 cm length. Careful submucosal dissection was performed bilaterally up to the interior portion of the inferior pubic ramus. The insertion of adductor longus tendon on the patient?s pubic ramus was identified as reference land rudi. Palpated the notch along the internal edge of ischiopubic ramus where the adductor longus tendon and the inferior pubic ramus meet. The Altis single incision sling (SIS) was selected. Then the needle of the SIS inserted aiming at the location of this notch. One of the integrated self-fixating tips place onto the needle by sliding it over the end of the needle. The needle/sling assembly was inserted toward the location of identified reference notch making sure that the flat of the handle is perpendicular to the desired path. The needle was tracked along the posterior surface of the ischiopubic ramus until the midline rudi on the mesh is approximately at the midline position under the urethra. The needle was removed and the same was repeated on the contralateral side until the appropriate sling tension under the urethra was achieved ensuring that the mesh lays flat. The needle was removed and vaginal incision was closed in a running interlocking fashion with 2-0 Vicryl. Then proceeded to perform the anterior colporrhaphy The vaginal mucosa was then injected in the midline with normal saline. The vaginal mucosa was scored in the midline with the Bovie approximately 1 cm medial to the urethral meatus to 1 cm distal to the vaginal cuff. This vaginal mucosa was then undermined and then incised in the midline with the Metzenbaum scissors. The lateral aspects of the vaginal mucosa were then grasped with the Allis clamps and the vaginal mucosa was then dissected off the underlying fascia with the Metzenbaum scissors. Again, there was noted to be quite a bit of oozing at the incision, which was controlled with cautery. After adequate dissection was performed, bilaterally. Then Interrupted vertical mattress sutures of 0 Vicryl were used to elevate the cystocele superiorly. The excessive vaginal mucosa was then trimmed with the Metzenbaum scissors and the vaginal mucosa was then reapproximated in the running interlocking fashion with 2-0 Vicryl. Then proceeded to perform the posterior colporrhaphy and sacrospinous fixation. A dilute 2% lidocaine with epinephrine solution was infiltrated under the posterior vaginal mucosa midline and into the perineal body. An inverted triangle/gregoria of skin / transverse incision was cut in the perineum. The posterior vaginal wall was opened vertically and midline up to the apex of the rectocele. The cut edges were held and splayed laterally with a series of Allis clamps. The open vaginal mucosa was then dissected laterally with a combination of sharp and blunt dissection, exposing the perirectal fascia. The posterior vaginal mucosa is opened in the routine fashion as described previously in Posterior Repair. A finger is inserted through the incision in the posterior vaginal mucosa, dissecting out the rectovaginal space (RVS). The right rectal pillar (RRP) is identified. The rectal pillar can be bluntly perforated either with the finger or with the tip of a long Yuly clamp. A Martínez-Kaela retractor is used for exposing the rectovaginal space in order to enter the pararectal space with retraction of the cardinal ligament, vagina, and rectum. Displacing the rectum to the left and the cardinal ligament and ureter anteriorly. A sponge dissector is used to bluntly dissect the sacrospinous ligament removing areolar tissue. The ischial spine was palpated directly, and a area approximately 2 cm medial to the spine was selected for insertion of the Anchorsure transvaginal sacrospinous fixation system. One end of the suture of Anchoresure system inserted through the sacrospinous ligament is placed through the muscular layer of the vagina. In a similar manner, the second suture is placed. The opposite end of the suture in the sacrospinous ligament is left free and held on a small hemostat. Then traction on this suture will draw the vaginal vault directly to the ligament, where a square knot affixes it to the sacrospinous ligament. After the cayden stich is tied the second safety stich is tied. Then the colporrhaphy/vaginal repair is carried out in routine fashion. The perirectal fascia was then reapproximated with interrupted #2-0 Vicryl sutures to draw the lateral folds together and tuck the rectocele back. Deep interrupted sutures of #0 Vicryl were used to reapproximate the fibers of the levator ani muscles. The excess vaginal mucosa was trimmed. The posterior vaginal wall was closed with a running locked #0 Vicryl to the hymenal tags. The superficial perineal muscles were closed with running unlocked #0 Vicryl and the perineal skin was closed with running subcuticular #2-0 Vicryl. Bludigo was given IV. Then the Toro catheter was removed and cystoscope was inserted. Complete evaluation of the bladder mucosa was performed noting no lacerations, dimpling, tears, bleeding of the mucosa or muscular layers. Both ureteral orifices were identified. Prompt excretion of blue urine from both ureteral orifices was noted. Cystoscope was withdrawn. The Toro catheter was replaced. Excellent hemostasis was obtained. A vaginal pack is placed overnight as postoperative support for the vaginal tissues after graft placement and closure of vaginal incisions. Sponge, lap, needle, and instrument counts were correct times three. The patient was taken to the recovery room, awake and in stable condition.
--- NOTE | 2023-06-01 15:48 | ANE.PACU2 ---
Inpatient post-anesthesia follow up: Airway intact: Yes Vital signs: Temperature 97 F Pulse Rate 70 Respiratory Rate 18 Blood Pressure 93/53 Pulse Oximetry 96 Oxygen Delivery Me thod Room Air Oxygen Flow Rate 6 Fraction of Inspir ed Oxygen Hydration adequate: Yes Nausea and vomiting: No Pain level: 3 Mental status: Baseline
[2023-06-01] MEDS: dextrose 5%-lactated ringers 1,000 ML 125 ML IV (17:07)
[2023-06-01] MEDS: ketorolac 30 mg/mL INJ IVP ×2 (17:09→22:44)
--- NOTE | 2023-06-01 22:00 | PC.NURSE ---
patient declined getting up to chair at this point. this nurse educated patient on dvts and how early movement can be beneficial. patient stated she would get up to chair at 0500.
[2023-06-02] MEDS: dextrose 5%-lactated ringers 1,000 ML 125 ML IV (01:15)
[2023-06-02] MEDS: sodium chloride 0.9% 500 ML IV (01:26)
[2023-06-02 03:30] VITALS: BP 95/57; PULSE 62; RESP 18; TEMP 36.3; O2SAT 99
[2023-06-02] MEDS: ketorolac 30 mg/mL INJ IVP (05:19)
--- NOTE | 2023-06-02 05:47 | PC.NURSE ---
vaginal packing removed at 0515.
[2023-06-02 05:54] LABS: Hematocrit 31.5 % (36-47); Mean Corpuscular HGB Conc 32.1 g/dL (30-55); Mean Corpuscular Hemoglobin 32.3 pg (27-33); Mean Corpuscular Volume 100.6 fl (85-98); Mean Platelet Volume 10.1 fL (7.4-10.4); Platelet Count 171 10^3/cmm (157-399); Red Blood Count 3.13 10^6/uL (3.85-5.65); Red Cell Distribution Width 12.9 % (12.1-15.1); White Blood Count 6.76 10^3/uL (3.29-11.43)
[2023-06-02] MEDS: sodium chloride 0.9% 1,000 ML 999 ML IV (06:29)
--- NOTE | 2023-06-02 11:32 | PM.OBGYDC ---
Discharge Providers RN LPN CNA Date of Admission: 06/01/23 15:42 Date of Discharge: 06/02/23 Attending Provider at Admission: Finesse Vance MD Attending Provider at Discharge: Finesse Vance MD Primary Care Provider: Aroldo Burger DO Reason for Visit Reason for Visit: N814 Hospital Course Hospital Course Mrs. Bauer 80-year-old female with history of uterine prolapse cystocele and rectocele. Was admitted for planned total vaginal hysterectomy with bilateral salpingo-oophorectomy, anterior colporrhaphy, mid urethral sling, posterior colporrhaphy and sacrospinous fixation. The procedures were performed without complication. Overnight observation uneventful. She is afebrile hemodynamically stable postoperative day 1. Tolerating diet well. Ambulating without difficulty. Abnormal PVR. Patient will be discharged home with Toro catheter and follow-up in the clinic next Wednesday. She was counseled regarding pelvic rest for 6 weeks (no sex, no tampons, no vaginal douches). Return to the emergency room if any fever, increased bleeding or pain. Physical Exam Narrative: GA: Alert and oriented ?3. HEENT: WNL. Heart: Regular rate and rhythm. Lungs: Clear to auscultation bilaterally. Abdomen: Bowel sounds present, nontender, minimal tenderness, incision clean and dry, no redness, pain or edema. [employer]: spotting bleeding. Extremities: No edema, no cyanosis, no calves pain. Urinary Catheter Management: Toro: Cath Placed During This Visit: yes, but has since been removed by the nurse Reason for Continuing Indwelling Catheter: Decision to DC Catheter Urinary Catheter Date of Insertion: 06/01/23 Urinary Catheter Time of Insertion: 13:50 Date Urinary Catheter Removed: 06/02/23 Time Urinary Catheter Discontinued: 07:00 History History History 3 Term 3 0 Miscarriages/Ectopic 0 Living Children 3 Discharge Data Studies Completed and Pending Pending at discharge Category Date Time Status Pathology: Surgical [PTH] Routine Pth 06/01/23 14:27 Received Laboratory Results WBC 6.76 10^3/uL (3.29-11.43) 06/02/23 05:15 RBC 3.13 10^6/uL (3.85-5.65) L 06/02/23 05:15 Hgb 10.10 g/dL (11.27-16.99) L 06/02/23 05:15 Hct 31.5 % (36-47) L 06/02/23 05:15 MCV 100.6 fl (85-98) H 06/02/23 05:15 MCH 32.3 pg (27-33) 06/02/23 05:15 MCHC 32.1 g/dL (30-55) 06/02/23 05:15 RDW 12.9 % (12.1-15.1) 06/02/23 05:15 Plt Count 171 10^3/cmm (157-399) 06/02/23 05:15 MPV 10.1 fL (7.4-10.4) 06/02/23 05:15 Neut % (Auto) 66.4 % 05/31/23 11:10 Lymph % (Auto) 20.7 % 05/31/23 11:10 [place] % (Auto) 9.8 % 05/31/23 11:10 Eos % (Auto) 2.5 % 05/31/23 11:10 Baso % (Auto) 0.4 % 05/31/23 11:10 Neut # (Auto) 3.24 10^3/uL (1.8-7.7) 05/31/23 11:10 Lymph # (Auto) 1.0 10^3/uL (0.8-4.8) 05/31/23 11:10 [place] # (Auto) 0.5 10^3/uL (0.2-0.9) 05/31/23 11:10 Eos # (Auto) 0.1 10^3/uL (0.0-0.8) 05/31/23 11:10 Baso # (Auto) 0.0 10^3/uL (0.0-0.1) 05/31/23 11:10 Nucleated RBC % (auto) 0 % 05/31/23 11:10 Nucleated RBCs # 0.0 /100WBC 05/31/23 11:10 Sodium 137 mmol/L (136-145) 05/31/23 11:10 Potassium 4.3 mmol/L (3.5-5.1) 05/31/23 11:10 Chloride 104 mmol/L (98-107) 05/31/23 11:10 Carbon Dioxide 25 mmol/L (22-29) 05/31/23 11:10 Anion Gap 12.3 (5-19) 05/31/23 11:10 BUN 29 mg/dL (8-23) H 05/31/23 11:10 Creatinine 0.6 mg/dL (0.5-0.9) 05/31/23 11:10 GFR Calculation Not Reportable 05/31/23 11:10 Glucose 94 mg/dL (65-115) 05/31/23 11:10 Calculated Osmolality 290 mOsm/kg (285-295) 05/31/23 11:10 Calcium 9.0 mg/dL (8.5-10.5) 05/31/23 11:10 Total Bilirubin 0.5 mg/dL (0.15-1.2) 05/31/23 11:10 AST 20 U/L (0-32) 05/31/23 11:10 ALT 18 U/L (0-33) 05/31/23 11:10 Alkaline Phosphatase 60 U/L (35-105) 05/31/23 11:10 Total Protein 6.9 g/dL (6.6-8.7) 05/31/23 11:10 Albumin 3.8 g/dL (3.5-5.2) 05/31/23 11:10 Globulin 3.1 g/dL (1.3-4.6) 05/31/23 11:10 Urine Color Yellow (Yellow) 05/31/23 11:05 Urine Appearance Clear (CLEAR) 05/31/23 11:05 Urine pH 5 (5-7) 05/31/23 11:05 Ur Specific [place] 1.020 (1.005-1.030) 05/31/23 11:05 Urine Protein Neg (Negative) 05/31/23 11:05 Urine Glucose (UA) Norm (Normal) 05/31/23 11:05 Urine Ketones Negative (Negative) 05/31/23 11:05 Urine Blood Neg (Negative) 05/31/23 11:05 Urine Nitrate Negative (Negative) 05/31/23 11:05 Urine Bilirubin Neg (Negative) 05/31/23 11:05 Urine Urobilinogen Norm mg/dL (Negative) 05/31/23 11:05 Ur Leukocyte Esterase Trace (Negative) H 05/31/23 11:05 Urine RBC 0-4 /hpf (0-2) H 05/31/23 11:05 Urine WBC 5-10 /hpf (0-5) H 05/31/23 11:05 Ur Squamous Epith Cells 0-4 /hpf (0-5) H 05/31/23 11:05 Amorphous Sediment Not Reportable 05/31/23 11:05 Urine Bacteria Trace /hpf (NONE) 05/31/23 11:05 Urine Mucus Trace /hpf 05/31/23 11:05 Blood Type A Positive 05/31/23 11:10 Rho(D) Type Rh positive 05/31/23 11:10 Antibody Screen Negative 05/31/23 11:10 Vitals Last Vital Signs Temp 97.4 F L 06/02/23 03:30 Pulse 62 06/02/23 03:30 Resp 18 06/02/23 03:30 BP 95/57 06/02/23 03:30 Pulse Ox 99 06/02/23 03:30 O2 Del Method Room Air 06/02/23 03:30 O2 Flow Rate 6 06/01/23 15:38 Results Labs OB ([facility]): Blood Type A Positive 05/31/23 Antibody Screen Negative 05/31/23 Hct 31.5 % (36-47) L 06/02/23 Hgb 10.10 g/dL (11.27-16.99) L 06/02/23 Rho(D) Type Rh positive 05/31/23 Plt Count 171 10^3/cmm (157-399) 06/02/23 Discharge Plan Discharge Patient Disposition: Home Condition: Stable Prescriptions: New hydrocodone-acetaminophen 5-325 mg tablet 1 tab PO Q4H PRN (Reason: pain) Qty: 10 0RF acetaminophen 325 mg capsule 325 mg PO Q4H PRN (Reason: fever or pain) Qty: 60 0RF docusate sodium [Colace] 100 mg capsule 100 mg PO BID Qty: 30 0RF ibuprofen 800 mg tablet 800 mg PO TID PRN (Reason: pain) Qty: 60 0RF nitrofurantoin macrocrystal 100 mg capsule 100 mg PO BID 7 Days Qty: 14 0RF Rx Instructions: must administer with a meal/food Continued omeprazole 20 mg capsule,delayed release(DR/EC) 20 mg PO DAILY mirtazapine 7.5 mg tablet See Rx Instructions PO DAILY Rx Instructions: dosage unknown orally daily; docusate sodium [Colace] 100 mg capsule 100 mg PO BID Qty: 14 0RF Discharge Orders: Discharge Order (Routine); Ordered 06/02/23 Ordered By: Finesse Vance Referrals: Finesse Vance MD [Physician] - 2 weeks Discharge Diet: Soft Mechanical Discharge Activity: Limit activity as instructed Patient Instructions: Opioid Safety, Hysterectomy (GEN), Vaginal Hysterectomy (GEN), Bladder Sling for Women (GEN), Posterior Vaginal Repair (GEN), Anterior Vaginal Repair (GEN) Activity Restrictions/Additional Instructions: 1. Please call [facility] on next working day to make your post-operative appointment for next Wednesday and in 2 weeks. 2. Please stay home until you come back to the clinic on first post-hospatilization check up. 3. Please follow instructions on your medications CAREFULLY. 4. If you have abdominal incision, do not cover it unless dressing is necessary because of drainage. OK to shower, but avoid bath. Leave steri-strips until they fall off. If they are still on one week after surgery, you may remove them. 5. If you had vaginal surgery or vaginal repair, Dr. Vance may instruct you to take SITZ bath. 6. Yellow, blood tinged odorous vaginal discharge is usually normal after hysterectomy or vaginal surgeries. 7. No SEXUAL INTERCOURSE, tampons, or douches until you are completely released from the post-operative care. 8. Avoid constipation by eating right and maybe using some Metamucil or Milk of Magnesia. 9. All prescription refills are given during the working hours. Please do no wait till it runs out. Call the clinic at [phone] before your medication runs out. The clinic will get in touch with your doctor to prescribe medications if necessary. 10. Please remain within 40 mile radius from our hospital because emergencies do happen now and then during the post-operative period. 11. If you have stairs at home, take one step at a time slowly and minimize the number of trips. It helps to stay in one floor for the next few days. No lifting except what you can lift by one hand until you are released from the post-operative care. 12. Driving is discouraged until you are well healed. It may be 3-4 weeks before you feel strong enough to drive. You should be able to turn and look through the rear window without pain and you should be able to push the brake pedal very hard without pain before you drive. No fast rules, but SAFETY should be your primary concern. DO NOT drive if you are on sedating medications such as narcotics. 13. Call the clinic (during working hours) to make urgent appointment or go to the Emergency room, if any of the following occurs: i. Vaginal bleeding becomes heavy, more than a period. ii. Incision becomes red and sore, or drains pus. iii. Your TEMPERATURE is over 100.4F or you have chill. iv. IV site becomes red and swollen (a little ``knot?? is usually OK) v. Persistent nausea and vomiting vi. Persistent constipation or diarrhea vii. Rash or allergic reaction to medications. Discharge Attestations RN LPN CNA Time Spent in Discharge Care*: greater than 30 min Coding Level of Care Code Acute Code for Chg Fwd
[2023-06-02 13:40] VITALS: BP 101/39; PULSE 86; RESP 16; TEMP 36.6; O2SAT 96
== END 2023-06-02 14:20 | disposition home or self-care (01) ==
LOC: OBGYN 15:43
PROVIDERS: Admitting Provider Obstetrics & Gynecology; PCP Internal Medicine; Visit Provider Obstetrics & Gynecology
PROC: (CPT 57282; principal; 2023-06-01 11:40)
PROC: 0JQC0ZZ Repair Pelvic Region Subcutaneous Tissue and Fascia, Open Approach (ICD-10-PCS; CPT 57240; 2023-06-01 11:40)
PROC: (CPT 57288; 2023-06-01 11:40)
PROC: (CPT 58720; 2023-06-01 11:40)
PROC: (CPT 57282; 2023-06-01 11:40)
DX: N81.4 Uterovaginal prolapse, unspecified (principal); N39.46 Mixed incontinence; K21.9 Gastro-esophageal reflux disease without esophagitis; M81.0 Age-related osteoporosis without current pathological fracture; Z85.3 Personal history of malignant neoplasm of breast
CPT/HCPCS: 57282; 57288; 58262; 36415; 51702; 51798; 80053; 81001; 85025; 85027; 86850; 86900; 88305; 96374; 96376; C1713; G0378; J0690; J1100; J1650; J1885; J2405; J2704; J2710; J3010; J3490; J7030; J7040; J7121; P9045

== ENCOUNTER 2023-06-06 14:20 | Observation (INO) | payer MEDICARE, MEDICAID, SELFPAY ==
[2023-06-06] VITALS (9 sets, daily range): BP systolic 108–177; BP diastolic 49–74; PULSE 72–81; RESP 16–24; TEMP 36.9–37.4; O2SAT 94–97; BMI 21.6
--- NOTE | 2023-06-06 14:25 | ECG_ITS ---
[facility] Test Date: 2023-06-06 Pat Name: Leeroy Bauer Department: Room: Gender: Female H[place]: : 1935 Requested By: Torsten Pacheco Order Number: [id number] Chase MD: Simon Rhodes M.D. Measurements Intervals [place] Rate: 65 P: 74 [place]: 138 QRS: 61 QRSD: 87 T: 74 QT: 398 QTc: 416 Interpretive Statements SINUS RHYTHM POSSIBLE RIGHT VENTRICULAR CONDUCTION DELAY [RSR (QR) IN V1/V2] INTERPRETATION BASED ON A DEFAULT AGE OF 40 YEARS No previous ECG available for comparison Electronically Signed On 06-06-2023 20:52:17 CDT by Simon Rhodes M.D. [id number]
--- NOTE | 2023-06-06 14:45 | PC.PHAR ---
pts daughter states she hasnt given the pt her mirtazapine or prilosec since 05/31/23-pts daughter states she gives the pt colace 100mg up to tid prn rx filled 100mg bid-
[2023-06-06] MEDS: ondansetron 2 mg/ML SDV 2 mL 4 MG IVP ×2 (14:56→19:32)
[2023-06-06] MEDS: sodium chloride 0.9% 1,000 ML 999 ML IV ×2 (14:56→18:38)
[2023-06-06 14:59] LABS: Basophils % 0.3 %; Eosinophils # 0.1 10^3/uL (0.0-0.8); Eosinophils % 1.4 %; Hematocrit 35.8 % (36-47); Lymphocytes % 16.5 %; Mean Corpuscular HGB Conc 32.4 g/dL (30-55); Mean Corpuscular Hemoglobin 32.3 pg (27-33); Mean Corpuscular Volume 99.7 fl (85-98); Mean Platelet Volume 9.7 fL (7.4-10.4); Monocytes # 0.5 10^3/uL (0.2-0.9); Neutrophils # 4.25 10^3/uL (1.8-7.7); Neutrophils % 72.5 %; Nucleated Red Blood Cells % 0 %; Platelet Count 231 10^3/cmm (157-399); Red Blood Count 3.59 10^6/uL (3.85-5.65); Red Cell Distribution Width 12.7 % (12.1-15.1); White Blood Count 5.87 10^3/uL (3.29-11.43)
[2023-06-06 15:10] LABS: Add Urine Microscopic? NO; Charge for UA Resulting for Rev
--- NOTE | 2023-06-06 15:16 | XRR_ITS ---
PROCEDURE INFORMATION: Exam: XR Complete Acute Abdomen Series Including Chest Exam date and time: 06/06/2023 3:31 PM Age: 88 years old Clinical indication: Constipation; Abdominal pain; Generalized; Additional info: Abd pain/constipation TECHNIQUE: Imaging protocol: Radiologic exam. Complete acute abdomen series, including 2 or more views of the abdomen and a single view chest. Other technique: UPRIGHT PA CHEST AND SUPINE AND UPRIGHT AP ABDOMEN COMPARISON: No relevant prior studies available. FINDINGS: Lungs: Clear. No consolidation. Pleural spaces: No pleural effusions or pneumothorax. Heart/Mediastinum: Normal. Gastrointestinal tract: Moderate stool is scattered within nondilated colon and rectum. Intraperitoneal space: No pneumoperitoneum. Vasculature: Thoracic aorta is moderately tortuous and mildly calcified. Bones/joints: There is mild left lower thoracic and right upper lumbar scoliosis. Degenerative facet disease of mid-lower cervical spine and degenerative disc disease of mid-lower thoracic and several levels of lumbar spine is present. Soft tissues: Grossly unremarkable. Other findings: No definite abnormal intra-abdominal calcifications. XR/XR acute abdomen series [id number] IMPRESSION: 1. Clear lungs. 2. Atherosclerosis. 3. Moderate stool is scattered within nondilated colon and rectum.
--- NOTE | 2023-06-06 15:16 | W.ED.ABDPA2 ---
Documented by User: Torsten Friedman DO 06/07/23 06:52 HPI - Abdominal Pain General: Chief Complaint: Abdominal Pain Stated Complaint: ABD PAIN Time Seen by Provider: 06/06/23 14:24 Source: patient Mode of arrival: ambulatory History of Present Illness: 88-year-old female presents emergency room complaining of constipation on May 31 she had a vaginal hysterectomy with bilateral oophorectomy as well as a bladder sling. She states that since then she has not been able to have a bowel movement she has a Toro still in place. No hematochezia melena hematemesis or coffee-ground emesis. MD elicited complaint: abdominal pain Onset (ago): day(s) Pain Consistency: constant Associated Symptoms: Reports constipation; Denies anorexia, belching, bloating, change in bowel habits, change in stool character, chills, coffee ground emesis, GI cramping, diarrhea, dyspepsia, dysuria, excessive flatus, fever(s), heartburn, hematochezia, hematuria, hematemesis, fecal incontinence, loose stools, melena, nausea, poor appetite, syncope and vomiting Review of Systems Const: Denies: fever(s) or chills Card: Denies: chest pain or syncope Resp: Denies: dyspnea GI: Reports: constipation; Denies: nausea, vomiting, hematemesis, coffee ground emesis, heartburn, diarrhea, bloating, GI cramping, belching, excessive flatus, fecal incontinence, change in bowel habits, change in stool character, hematochezia or melena : Denies: dysuria or hematuria Musc: Denies: neck pain or back pain Skin/Breast: Denies: rash PFSH ED PFSH: Medical History Fitting and adjustment of pessary 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 Uterovaginal prolapse GERD (gastroesophageal reflux disease) Osteoporosis Breast cancer Surgical History History of right mastectomy (09/14/22) Right simple mastectomy with axillary sentinel lymph node biopsy History of right breast biopsy (08/12/22) Family History Daughter Thyroid disease Denies family history of Colon cancer Ovarian cancer Diabetes Heart disease Hyperlipidemia Breast cancer Hypertension Uterine cancer Stroke Social History Smoking and tobacco/nicotine status: never used tobacco/nicotine Alcohol intake: never Substance/Drug Use: never Physical Exam Const: COMMON NORMALS: no acute distress GENERAL APPEARANCE: cooperative and comfortable ORIENTATION/CONSCIOUSNESS: Yes awake, Yes oriented to person, Yes oriented to place and Yes oriented to time HENMT: COMMON NORMALS: normocephalic, atraumatic and hearing grossly normal bilaterally HEAD & SCALP: normocephalic and atraumatic Resp: COMMON NORMALS: normal respiratory effort, No retractions, No use of accessory muscles and clear to auscultation bilaterally AUSCULTATION: clear to auscultation bilaterally Cardio: COMMON NORMALS: regular rate, regular rhythm and No murmurs present (Cardio) RATE: regular rate RHYTHM: regular rhythm GI: COMMON NORMALS: Soft to palpation and No hepatosplenomegaly present AUSCULTATION: Yes normoactive bowel sounds PALPATION: Yes Soft to palpation, No Tenderness to palpation present (GI), No Guarding due to palpation present (GI) and Yes No hepatosplenomegaly present Extremity: COMMON NORMALS: normal to inspection, capillary refill normal, no clubbing, cyanosis or edema, no calf tenderness and no pedal edema Neuro: SENSORIUM/ORIENTATION: Yes oriented to person, Yes oriented to place and Yes oriented to time Skin: COMMON NORMALS: no rashes or lesions noted GENERAL SKIN EXAM: no rashes or lesions noted Course Vital Signs: Vital signs: Vital Signs Temperature 98.2 F 06/07/23 04:00 Pulse Rate 63 06/07/23 05:35 Respiratory Rate 17 06/07/23 04:00 Blood Pressure 105/52 06/07/23 04:00 Pulse Oximetry 97 06/07/23 04:00 Oxygen Delivery Me thod Room Air 06/07/23 04:00 MDM - Abdominal Pain Medical Decision Making Care signed out to Dr. Melgar at change of shift. See final notes for diagnosis and disposition. 88-year-old female patient checked out to me at shift change by Dr. Friedman. This lady had been quite constipated. She had a large bowel movement in the ER after an enema, followed by a syncopal episode. Following this, fluid resuscitation was attempted, as her pressure was a bit low. She was not orthostatic, however she was still very weak and unable to ambulate following her syncopal episode. CBC is not remarkable. BMP is not terribly remarkable. Liver enzymes are normal. Urinalysis shows 1+ ketones. X-ray showed constipation prior to bowel movement. She will be observed for continued fluid resuscitation, pain control if needed, and attempted ambulation in the morning. Further workup pending hospitalist evaluation. He is agreed to observe. Lab Data 06/06/23 14:39 06/06/23 14:39 Labs/Radiology: Radiology Impressions Chest/Abdomen X-ray 06/06/23 15:16 IMPRESSION: 1. Clear lungs. 2. Atherosclerosis. 3. Moderate stool is scattered within nondilated colon and rectum. Laboratory Results WBC 5.87 10^3/uL (3.29-11.43) 06/06/23 14:39 RBC 3.59 10^6/uL (3.85-5.65) L 06/06/23 14:39 Hgb 11.60 g/dL (11.27-16.99) 06/06/23 14:39 Hct 35.8 % (36-47) L 06/06/23 14:39 MCV 99.7 fl (85-98) H 06/06/23 14:39 MCH 32.3 pg (27-33) 06/06/23 14:39 MCHC 32.4 g/dL (30-55) 06/06/23 14:39 RDW 12.7 % (12.1-15.1) 06/06/23 14:39 Plt Count 231 10^3/cmm (157-399) 06/06/23 14:39 MPV 9.7 fL (7.4-10.4) 06/06/23 14:39 Neut % (Auto) 72.5 % 06/06/23 14:39 Lymph % (Auto) 16.5 % 06/06/23 14:39 Luce % (Auto) 9.0 % 06/06/23 14:39 Eos % (Auto) 1.4 % 06/06/23 14:39 Baso % (Auto) 0.3 % 06/06/23 14:39 Neut # (Auto) 4.25 10^3/uL (1.8-7.7) 06/06/23 14:39 Lymph # (Auto) 1.0 10^3/uL (0.8-4.8) 06/06/23 14:39 Luce # (Auto) 0.5 10^3/uL (0.2-0.9) 06/06/23 14:39 Eos # (Auto) 0.1 10^3/uL (0.0-0.8) 06/06/23 14:39 Baso # (Auto) 0.0 10^3/uL (0.0-0.1) 06/06/23 14:39 Nucleated RBC % (auto) 0 % 06/06/23 14:39 Nucleated RBCs # 0.0 /100WBC 06/06/23 14:39 Sodium 137 mmol/L (136-145) 06/06/23 14:39 Potassium 4.4 mmol/L (3.5-5.1) 06/06/23 14:39 Chloride 104 mmol/L (98-107) 06/06/23 14:39 Carbon Dioxide 26 mmol/L (22-29) 06/06/23 14:39 Anion Gap 11.4 (5-19) 06/06/23 14:39 BUN 25 mg/dL (8-23) H 06/06/23 14:39 Creatinine 0.5 mg/dL (0.5-0.9) 06/06/23 14:39 GFR Calculation Not Reportable 06/06/23 14:39 Glucose 118 mg/dL (65-115) H 06/06/23 14:39 Calculated Osmolality 289 mOsm/kg (285-295) 06/06/23 14:39 Calcium 9.3 mg/dL (8.5-10.5) 06/06/23 14:39 Total Bilirubin 0.5 mg/dL (0.15-1.2) 06/06/23 14:39 AST 24 U/L (0-32) 06/06/23 14:39 ALT 21 U/L (0-33) 06/06/23 14:39 Alkaline Phosphatase 68 U/L (35-105) 06/06/23 14:39 Total Protein 7.1 g/dL (6.6-8.7) 06/06/23 14:39 Albumin 3.9 g/dL (3.5-5.2) 06/06/23 14:39 Globulin 3.2 g/dL (1.3-4.6) 06/06/23 14:39 Lipase 46 U/L (13-60) 06/06/23 14:39 Urine Color Yellow (Yellow) 06/06/23 14:41 Urine Appearance Clear (CLEAR) 06/06/23 14:41 Urine pH 5 (5-7) 06/06/23 14:41 Ur Specific [place] 1.030 (1.005-1.030) 06/06/23 14:41 Urine Protein Neg (Negative) 06/06/23 14:41 Urine Glucose (UA) Norm (Normal) 06/06/23 14:41 Urine Ketones 1+ (Negative) H 06/06/23 14:41 Urine Blood Neg (Negative) 06/06/23 14:41 Urine Nitrate Negative (Negative) 06/06/23 14:41 Urine Bilirubin Neg (Negative) 06/06/23 14:41 Urine Urobilinogen Norm mg/dL (Negative) 06/06/23 14:41 Ur Leukocyte Esterase Negative (Negative) 06/06/23 14:41 Discharge Plan Discharge Patient Disposition: Admitted As Inpatient Admit Provider: Ky Soto Clinical Impression: Syncope, Generalized weakness, Constipation Condition: Stable Coding Level of Care Code ED Forest [employer] Prevention Specialist for Chg Fwd Documented by User: Damon Melgar DO 06/07/23 00:17 HPI - Abdominal Pain General: Chief Complaint: Abdominal Pain Stated Complaint: ABD PAIN Time Seen by Provider: 06/06/23 14:24 [facility] ED PFSH: Medical History Fitting and adjustment of pessary 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 Uterovaginal prolapse GERD (gastroesophageal reflux disease) Osteoporosis Breast cancer Surgical History History of right mastectomy (09/14/22) Right simple mastectomy with axillary sentinel lymph node biopsy History of right breast biopsy (08/12/22) Family History Daughter Thyroid disease Denies family history of Colon cancer Ovarian cancer Diabetes Heart disease Hyperlipidemia Breast cancer Hypertension Uterine cancer Stroke Social History Smoking and tobacco/nicotine status: never used tobacco/nicotine Alcohol intake: never Substance/Drug Use: never Course Vital Signs: Vital signs: Vital Signs Temperature 98.2 F 06/07/23 04:00 Pulse Rate 63 06/07/23 05:35 Respiratory Rate 17 06/07/23 04:00 Blood Pressure 105/52 06/07/23 04:00 Pulse Oximetry 97 06/07/23 04:00 Oxygen Delivery Me thod Room Air 06/07/23 04:00 MDM - Abdominal Pain Medical Decision Making 88-year-old female patient checked out to me at shift change by Dr. Friedman. This lady had been quite constipated. She had a large bowel movement in the ER after an enema, followed by a syncopal episode. Following this, fluid resuscitation was attempted, as her pressure was a bit low. She was not orthostatic, however she was still very weak and unable to ambulate following her syncopal episode. CBC is not remarkable. BMP is not terribly remarkable. Liver enzymes are normal. Urinalysis shows 1+ ketones. X-ray showed constipation prior to bowel movement. She will be observed for continued fluid resuscitation, pain control if needed, and attempted ambulation in the morning. Further workup pending hospitalist evaluation. He is agreed to observe. Lab Data 06/06/23 14:39 06/06/23 14:39 Labs/Radiology: Radiology Impressions Chest/Abdomen X-ray 06/06/23 15:16 IMPRESSION: 1. Clear lungs. 2. Atherosclerosis. 3. Moderate stool is scattered within nondilated colon and rectum. Laboratory Results WBC 5.87 10^3/uL (3.29-11.43) 06/06/23 14:39 RBC 3.59 10^6/uL (3.85-5.65) L 06/06/23 14:39 Hgb 11.60 g/dL (11.27-16.99) 06/06/23 14:39 Hct 35.8 % (36-47) L 06/06/23 14:39 MCV 99.7 fl (85-98) H 06/06/23 14:39 MCH 32.3 pg (27-33) 06/06/23 14:39 MCHC 32.4 g/dL (30-55) 06/06/23 14:39 RDW 12.7 % (12.1-15.1) 06/06/23 14:39 Plt Count 231 10^3/cmm (157-399) 06/06/23 14:39 MPV 9.7 fL (7.4-10.4) 06/06/23 14:39 Neut % (Auto) 72.5 % 06/06/23 14:39 Lymph % (Auto) 16.5 % 06/06/23 14:39 Luce % (Auto) 9.0 % 06/06/23 14:39 Eos % (Auto) 1.4 % 06/06/23 14:39 Baso % (Auto) 0.3 % 06/06/23 14:39 Neut # (Auto) 4.25 10^3/uL (1.8-7.7) 06/06/23 14:39 Lymph # (Auto) 1.0 10^3/uL (0.8-4.8) 06/06/23 14:39 Luce # (Auto) 0.5 10^3/uL (0.2-0.9) 06/06/23 14:39 Eos # (Auto) 0.1 10^3/uL (0.0-0.8) 06/06/23 14:39 Baso # (Auto) 0.0 10^3/uL (0.0-0.1) 06/06/23 14: Nucleated RBC % (auto) 0 % 06/06/23: Nucleated RBCs # 0.0 /100WBC 06/06/23 14:39 Sodium 137 mmol/L (136-145) 06/06/23 14:39 Potassium 4.4 mmol/L (3.5-5.1) 06/06/23 14:39 Chloride 104 mmol/L (98-107) 06/06/23 14:39 Carbon Dioxide 26 mmol/L (22-29) 06/06/23 14:39 Anion Gap 11.4 (5-19) 06/06/23 14:39 BUN 25 mg/dL (8-23) H 06/06/23 14:39 Creatinine 0.5 mg/dL (0.5-0.9) 06/06/23 14:39 GFR Calculation Not Reportable 06/06/23 14:39 Glucose 118 mg/dL (65-115) H 06/06/23 14:39 Calculated Osmolality 289 mOsm/kg (285-295) 06/06/23 14:39 Calcium 9.3 mg/dL (8.5-10.5) 06/06/23 14:39 Total Bilirubin 0.5 mg/dL (0.15-1.2) 06/06/23 14:39 AST 24 U/L (0-32) 06/06/23 14:39 ALT 21 U/L (0-33) 06/06/23 14:39 Alkaline Phosphatase 68 U/L (35-105) 06/06/23 14:39 Total Protein 7.1 g/dL (6.6-8.7) 06/06/23 14:39 Albumin 3.9 g/dL (3.5-5.2) 06/06/23 14:39 Globulin 3.2 g/dL (1.3-4.6) 06/06/23 14:39 Lipase 46 U/L (13-60) 06/06/23 14:39 Urine Color Yellow (Yellow) 06/06/23 14:41 Urine Appearance Clear (CLEAR) 06/06/23 14:41 Urine pH 5 (5-7) 06/06/23 14:41 Ur Specific [place] 1.030 (1.005-1.030) 06/06/23 14:41 Urine Protein Neg (Negative) 06/06/23 14:41 Urine Glucose (UA) Norm (Normal) 06/06/23 14:41 Urine Ketones 1+ (Negative) H 06/06/23 14:41 Urine Blood Neg (Negative) 06/06/23 14:41 Urine Nitrate Negative (Negative) 06/06/23 14:41 Urine Bilirubin Neg (Negative) 06/06/23 14:41 Urine Urobilinogen Norm mg/dL (Negative) 06/06/23 14:41 Ur Leukocyte Esterase Negative (Negative) 06/06/23 14:41 All radiology interpretation(s) finalized by discharge Discharge Plan Discharge Patient Disposition: Admitted As Inpatient Admit Provider: Ky Soto Clinical Impression: Syncope, Generalized weakness, Constipation Condition: Stable Coding Level of Care Code ED Forest Fire Prevention Specialist for Masha Rivera
[2023-06-06 15:19] LABS: Bilirubin Urine Neg (Negative); Blood Urine Neg (Negative); Glucose Urine UA Norm (Normal); Ketones Urine 1+ (Negative); Leukocyte Esterase Urine Negative (Negative); Nitrate Urine Negative (Negative); Protein Urine Neg (Negative); Urine Appearance Clear (CLEAR); Urine Color Yellow (Yellow); Urobilinogen Urine Norm (Negative); pH Urine 5 (5-7)
[2023-06-06 15:22] LABS: Alanine Aminotransferase 21 U/L (0-33); Albumin Level 3.9 g/dL (3.5-5.2); Alkaline Phosphatase 68 U/L (35-105); Anion Gap 11.4 (5-19); Aspartate Amino Transferase 24 U/L (0-32); Blood Urea Nitrogen 25 mg/dL (8-23); Calcium 9.3 mg/dL (8.5-10.5); Carbon Dioxide 26 mmol/L (22-29); Chloride 104 mmol/L (98-107); Creatinine Clr Calc Pharmacy 40.0279; Globulin 3.2 g/dL (1.3-4.6); Glucose 118 mg/dL (65-115); Lipase 46 U/L (13-60); Osmolality Calculated 289 mOsm/kg (285-295); Potassium 4.4 mmol/L (3.5-5.1); Sodium 137 mmol/L (136-145); Total Bilirubin 0.5 mg/dL (0.15-1.2); Total Protein 7.1 g/dL (6.6-8.7)
[2023-06-06] MEDS: ketorolac 30 mg/mL INJ 15 MG IVP (19:35)
--- NOTE | 2023-06-06 20:32 | P.HP_ITS ---
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 She endorses associated constipation. She states she has not had a significant bowel movement about 5 days. She describes the pain as diffuse. Denies fevers, chills, chest pain or shortness of breath. She just recently had surgery which entailed: Total vaginal hysterectomy with bilateral salpingo-oophorectomy, anterior colporrhaphy, mid urethral single incision sling, posterior colporrhaphy, sacrospinous fixation, and cystoscopy. She was discharged home 06/02/23. Daughter is bedside and supportive. She reports patient is getting weaker. Patient also has Toro catheter. Daughter reports she failed her voiding trial. She has an outpatient voiding trial scheduled for tomorrow 06/06. Daughter asked this to be done while she is at the hospital. In the emergency department, patient was treated with enema. She had a very large bowel movement afterwards. Patient stood with daughter and had episode of syncope. Afterwards, she was found to be severely weak. Patient could not stand. There is no safe discharge plan to home. Patient presents for observation overnight. Review of Systems 2 Narrative: A complete review of systems was obtained and is negative except as stated in HPI. Medications/Allergies Home Medications Medication Instructions Recorded Confirmed Last Taken Type omeprazole 20 mg capsule,delayed 20 mg PO DAILY 09/09/22 06/06/23 05/31/23 History release acetaminophen 325 mg capsule 325 mg PO Q4H PRN fever or pain 06/02/23 06/06/23 06/06/23 Rx #60 caps hydrocodone 5 mg-acetaminophen 325 1 tab PO Q4H PRN pain #10 tabs 06/02/23 06/06/23 Unknown Rx mg tablet ibuprofen 800 mg tablet 800 mg PO TID PRN pain #60 tabs 06/02/23 06/06/23 Unknown Rx nitrofurantoin macrocrystal 100 mg 100 mg PO BID 7 days #14 caps 06/02/23 06/06/23 06/06/23 Rx capsule docusate sodium 100 mg capsule 100 mg PO .UP TO TID PRN 06/06/23 06/06/23 06/06/23 History (Colace) Constipation mirtazapine 15 mg tablet 7.5 mg PO BEDTIME 06/06/23 06/06/23 05/31/23 History Allergies Allergy/AdvReac Type Severity Reaction Status Date / Time No Known Allergies Allergy Verified 06/06/23 14:42 PFSH Acute 2 PFSH: Medical History Fitting and adjustment of pessary 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 Uterovaginal prolapse GERD (gastroesophageal reflux disease) Osteoporosis Breast cancer Surgical History History of right mastectomy (09/14/22) Right simple mastectomy with axillary sentinel lymph node biopsy History of right breast biopsy (08/12/22) Family History Daughter Thyroid disease Denies family history of Colon cancer Ovarian cancer Diabetes Heart disease Hyperlipidemia Breast cancer Hypertension Uterine cancer Stroke Social History Smoking and tobacco/nicotine status: never used tobacco/nicotine Alcohol intake: never Substance/Drug Use: never Vitals/I&O/Wt Last Vital Signs Temp 98.5 F 06/06/23 14:25 Pulse 80 06/06/23 20:01 Resp 18 06/06/23 20:01 BP 130/74 06/06/23 20:01 Pulse Ox 94 06/06/23 20:01 O2 Del Method Room Air 06/06/23 20:01 06/06/23 06/06/23 06/06/23 06:59 14:59 22:59 Intake Total 1999 Balance 1999 Weight last 48 hrs Weight 52.163 kg Physical Exam 2 Narrative: General: Patient is awake. Pleasant. Head: Normocephalic. Atraumatic. EOM intact. Neck: No JVD. Cardiovascular: RRR. No gallops. No murmurs. No peripheral edema. Lungs: Clear to auscultation, no use of accessory muscles, no crackles or wheezes. Skin: No jaundice. No rashes. Abdomen: Normal bowel sounds, abdomen soft and very mild tenderness in all 4 quadrants. Extremities: No cyanosis or clubbing. Musculoskeletal: No swollen or erythematous joints. Neurological: Moves all 4 extremities. No myoclonus. Data 06/06/23 14:39 06/06/23 14:39 A&P Assessment and plan (1) Generalized weakness: Patient found to be too weak and debilitated emergency department to safely discharge home Weakness likely multifactorial but mostly related to physical deconditioning following postop state and severe constipation Admit to observation for supportive care, therapy evaluation, bowel regiment, and telemetry monitoring due to syncope Physical and Occupational Therapy consultation Optimize electrolytes (2) Syncope: Patient syncopized with bowel movement in the ED, suspect vasovagal Status post 2 L of IV fluids in the ED, body weight is 43 kg, hold off on additional fluids for tonight Cardiac monitoring Monitor for recurrence Fall precautions (3) Constipation: Status post enema in ED Likely exacerbated by recent surgery Start bowel regiment (4) Uterovaginal prolapse: Status post recent surgery by gynecology on 06/01/23 Routine postop care Consider voiding trial on 06/06 Plan DVT prophylaxis: Lovenox Attestations 2 Medical Necessity Statement*: Patient presents with abdominal pain, found to have postop constipation requiring enema. ED course was complicated by syncopal episode and severe weakness. Patient deemed unsafe to discharge to home. She presents for observation for supportive care, titration of bowel regiment, telemetry, further evaluation with expected hospitalization across 2 midnights. Coding Level of Care Code Acute Code for [facility] Fwd Diagnoses Generalized weakness R53.1 Syncope R55 Constipation K59.00 Uterovaginal prolapse N81.4
[2023-06-06] MEDS: enoxaparin 40 mg/0.4 mL Syringe SUBCUT (21:42)
[2023-06-07] VITALS (7 sets, daily range): BP systolic 88–123; BP diastolic 41–56; PULSE 63–83; RESP 16–18; TEMP 36.8–37.1; O2SAT 94–97
[2023-06-07] MEDS: sennosides-docusate Tablet 2 TAB PO (08:13)
[2023-06-07] MEDS: polyethylene glycol 3350 Pkt 17 gm PO (08:13)
--- NOTE | 2023-06-07 11:07 | PC.CHAP ---
Pastoral Care Encounter/Spiritual Assessment Type of Contact [] Declined design engineering specialist visit [] Patient/Family/Request visit [] Outpatient visit [] Follow-up visit [] Physician referral [] Code/Alert [x] Routine visit [] Staff referral [] Actively dying [] Patient sleeping [] Family support [] [] Out of room [] Palliative care [] [x] Receiving care in room [] Pre-surgical visit [] Trauma [] Long length of stay [] ICU visit [] Other: Relational/Emotional Strength [] Patient feels connected with others/family/visitors/staff [] Distress [] Loneliness/isolation [] Abandonment Spirituality of Patient [] Person of [place] [] Attends Buddhist of their [place] [] Believes in Prayer [] Reads Bible or Confucianism materials [] There are Spiritual issues to be addressed Senior Payroll Manager Interventions [] Prayer [] Active listening [] Non-anxious presence [] Spiritual/emotional support [] Crisis/trauma care [] Spiritual counseling [] Bereavement support [] Provided bereavement packet [] Provided Bible/devotional materials [] Provided toy/stuffed animal, coloring book to patient or family member [] Provided Communion [] Anointing/[place] [] Salvation [] Completed spiritual assessment [] Other: Impact on Illness or Injury [] Angry [] Fearful [] Anxious [] Often cries [] Exhaustion [] Unable to work [] Unable to attend sabianism [] Unable to walk/stand [] Unable to read [] Unable to drive [] Unable to eat/drink [] Unable to sleep [] Unable to be with family [] Patient intubated [] Other: Summary Time spent with patient
--- NOTE | 2023-06-08 20:10 | PM.DCS ---
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 She reports that for the last several days she had been having severe constipation. She had not had a bowel movement for the last 5 days. She was taking a stool softener and MiraLAX at home. Denied fevers, chills, chest pain or shortness of breath. She had been recently evaluated by gynecology and is status post total vaginal hysterectomy with bilateral salpingo-oophorectomy, anterior colporrhaphy, mid urethral single incision sling, posterior colporrhaphy, sacrospinous fixation, and cystoscopy. She was discharged home 06/02/23. She had a casanova catheter placed at discharge due to vaginal swelling and was supposed to follow up this week to have it removed. Hospital Course Hospital Course She was started on IV fluids, and did have a very large bowel movement while in the emergency room. After bowel movement, she reported that her abdominal pain had resolved. Discussed with her print finisher in regards to her catheter, and he had agreed this could be removed while she is inpatient. She was able to void after the Casanova was removed, and a post residual showed minimal urinary retention. She was discharged in stable and improved condition. Family and patient was educated in regards to bowel regimen for home. Physical Exam Narrative: General: Cooperative patient in no apparent distress. Well developed. HEENT: Normocephalic, Atraumatic. External ears normal. Nasal passages patent without drainage. MMM. Heart: RRR. Resp: LCTA. No respiratory distress, no use of accessory muscles. Abd: Soft, non-tender. Non-distended. Extremities: No edema. Skin: No rash or lesions on exposed areas. Discharge Data Studies Completed and Pending Completed Studies During Hospitalization Category Date Time Status XR acute abdomen series [id number] Stat Exams 06/06/23 15:16 Completed Radiology Impressions Chest/Abdomen X-ray 06/06/23 15:16 IMPRESSION: 1. Clear lungs. 2. Atherosclerosis. 3. Moderate stool is scattered within nondilated colon and rectum. Laboratory Results WBC 5.87 10^3/uL (3.29-11.43) 06/06/23 14:39 RBC 3.59 10^6/uL (3.85-5.65) L 06/06/23 14:39 Hgb 11.60 g/dL (11.27-16.99) 06/06/23 14:39 Hct 35.8 % (36-47) L 06/06/23 14:39 MCV 99.7 fl (85-98) H 06/06/23 14:39 MCH 32.3 pg (27-33) 06/06/23 14:39 MCHC 32.4 g/dL (30-55) 06/06/23 14:39 RDW 12.7 % (12.1-15.1) 06/06/23 14:39 Plt Count 231 10^3/cmm (157-399) 06/06/23 14:39 MPV 9.7 fL (7.4-10.4) 06/06/23 14:39 Neut % (Auto) 72.5 % 06/06/23 14:39 Lymph % (Auto) 16.5 % 06/06/23 14:39 [place] % (Auto) 9.0 % 06/06/23 14:39 Eos % (Auto) 1.4 % 06/06/23 14:39 Baso % (Auto) 0.3 % 06/06/23 14:39 Neut # (Auto) 4.25 10^3/uL (1.8-7.7) 06/06/23 14:39 Lymph # (Auto) 1.0 10^3/uL (0.8-4.8) 06/06/23 14:39 [place] # (Auto) 0.5 10^3/uL (0.2-0.9) 06/06/23 14:39 Eos # (Auto) 0.1 10^3/uL (0.0-0.8) 06/06/23 14:39 Baso # (Auto) 0.0 10^3/uL (0.0-0.1) 06/06/23 14:39 Nucleated RBC % (auto) 0 % 06/06/23 14:39 Nucleated RBCs # 0.0 /100WBC 06/06/23 14:39 Sodium 137 mmol/L (136-145) 06/06/23 14:39 Potassium 4.4 mmol/L (3.5-5.1) 06/06/23 14:39 Chloride 104 mmol/L (98-107) 06/06/23 14:39 Carbon Dioxide 26 mmol/L (22-29) 06/06/23 14:39 Anion Gap 11.4 (5-19) 06/06/23 14:39 BUN 25 mg/dL (8-23) H 06/06/23 14:39 Creatinine 0.5 mg/dL (0.5-0.9) 06/06/23 14:39 GFR Calculation Not Reportable 06/06/23 14:39 Glucose 118 mg/dL (65-115) H 06/06/23 14:39 Calculated Osmolality 289 mOsm/kg (285-295) 06/06/23 14:39 Calcium 9.3 mg/dL (8.5-10.5) 06/06/23 14:39 Total Bilirubin 0.5 mg/dL (0.15-1.2) 06/06/23 14:39 AST 24 U/L (0-32) 06/06/23 14:39 ALT 21 U/L (0-33) 06/06/23 14:39 Alkaline Phosphatase 68 U/L (35-105) 06/06/23 14:39 Total Protein 7.1 g/dL (6.6-8.7) 06/06/23 14:39 Albumin 3.9 g/dL (3.5-5.2) 06/06/23 14:39 Globulin 3.2 g/dL (1.3-4.6) 06/06/23 14:39 Lipase 46 U/L (13-60) 06/06/23 14:39 Urine Color Yellow (Yellow) 06/06/23 14:41 Urine Appearance Clear (CLEAR) 06/06/23 14:41 Urine pH 5 (5-7) 06/06/23 14:41 Ur Specific [place] 1.030 (1.005-1.030) 06/06/23 14:41 Urine Protein Neg (Negative) 06/06/23 14:41 Urine Glucose (UA) Norm (Normal) 06/06/23 14:41 Urine Ketones 1+ (Negative) H 06/06/23 14:41 Urine Blood Neg (Negative) 06/06/23 14:41 Urine Nitrate Negative (Negative) 06/06/23 14:41 Urine Bilirubin Neg (Negative) 06/06/23 14:41 Urine Urobilinogen Norm mg/dL (Negative) 06/06/23 14:41 Ur Leukocyte Esterase Negative (Negative) 06/06/23 14:41 Vitals Last Vital Signs Temp 98.3 F 06/07/23 07:43 Pulse 67 06/07/23 11:50 Resp 18 06/07/23 11:50 BP 123/56 06/07/23 11:50 Pulse Ox 96 06/07/23 11:50 O2 Del Method Room Air 06/07/23 11:50 Discharge Plan Discharge Patient Disposition: Home Condition: Stable Prescriptions: Continued omeprazole 20 mg capsule,delayed release(DR/EC) 20 mg PO DAILY ibuprofen 800 mg tablet 800 mg PO TID PRN (Reason: pain) Qty: 60 0RF acetaminophen 325 mg capsule 325 mg PO Q4H PRN (Reason: fever or pain) Qty: 60 0RF hydrocodone-acetaminophen 5-325 mg tablet 1 tab PO Q4H PRN (Reason: pain) Qty: 10 0RF mirtazapine 15 mg tablet 7.5 mg PO BEDTIME Colace 100 mg capsule 100 mg PO .UP TO TID PRN (Reason: Constipation) Discharge Orders: Discharge Order (Routine); Ordered 06/07/23 Ordered By: Cornel Ricketts Other Ambulatory Orders: DME: Michelle (Order) Location: None Selected Ordered By: Cornel Ricketts DME: Fernando (Order) Location: None Selected Ordered By: Cornel Ricketts Referrals: Finesse Vance MD [Physician] - 06/18/23 8:45 am (Follow up in one week. ) Aroldo Burger DO [Primary Care Provider] - 06/14/23 9:20 am Discharge Diet: Usual diet Discharge Activity: Resume usual activity Patient Instructions: Constipation (DC), Opioid Safety Discharge Attestations Time Spent in Discharge Care*: less than 30 min Specific Discharge Activities: educating patient, educating and/or supporting family/caregiver, discussing with pcp/other providers, documenting/other paperwork and evaluating patient/reviewing data Quality Metrics Clinical Quality Measures [ No reported AMI, CVA or VTE this stay] Coding Level of Care Code Acute Code for Chg Fwd Diagnoses Generalized weakness R53.1 Syncope R55 Constipation K59.00 Uterovaginal prolapse N81.4
== END 2023-06-07 14:43 | disposition home or self-care (01) ==
LOC: ER 18:38 → MEDSURG 19:55
PROVIDERS: Family Medicine; Admitting Provider Internal Medicine; Emergency Provider Emergency Medicine; PCP Internal Medicine; Visit Provider Internal Medicine
DX: R53.1 Weakness (principal); R55 Syncope and collapse; K59.00 Constipation, unspecified; N18.4 Chronic kidney disease, stage 4 (severe); Z85.3 Personal history of malignant neoplasm of breast; K21.9 Gastro-esophageal reflux disease without esophagitis; M81.0 Age-related osteoporosis without current pathological fracture; Z98.890 Other specified postprocedural states; N39.9 Disorder of urinary system, unspecified
CPT/HCPCS: 36415; 74022; 80053; 81003; 83690; 85025; 93005; 96361; 96372; 96374; 96375; 97116; 97161; 97165; 99285; G0378; J1650; J1885; J2405; J7030

== ENCOUNTER 2023-10-14 15:00 | Oncology outpatient (recurring) (ONCR) | payer MEDICARE, MEDICAID, SELFPAY | END 2023-10-23 23:59 | disposition home or self-care (01) | LOC: ONCMED 15:03 | PROVIDERS: PCP Internal Medicine; Visit Provider Internal Medicine Medical Oncology | DX: C50.411 Malignant neoplasm of upper-outer quadrant of right female breast (principal); Z17.0 Estrogen receptor positive status [ER+] | CPT/HCPCS: 99213 ==

== ENCOUNTER 2023-10-20 14:25 | Outpatient (CLI) | payer MEDICARE, MEDICAID, SELFPAY ==
--- NOTE | 2023-10-20 14:30 | MM_ITS ---
WS: [id number] LEFT 3D TOMOSYNTHESIS DIGITAL MAMMOGRAPHY WITH CAD CLINICAL INFORMATION: history of breast cancer HISTORY: History of RIGHT mastectomy COMPARISON: 2022 TECHNIQUE: 3 views of the left breast were obtained. FINDINGS: Scattered fibroglandular densities of the left breast. Vascular calcification No suspicious focal mass, asymmetry, calcifications, or architectural distortion. No evidence of tangela gnancy. MM/[id number] IMPRESSION: BI-RADS: 2-Benign FOLLOW UP: 1 Year Follow-up Recommend return to annual diagnostic mammography.
== END 2023-10-20 14:26 | disposition home or self-care (01) ==
LOC: RAD 14:27
PROVIDERS: PCP Internal Medicine; Visit Provider Internal Medicine Medical Oncology
DX: Z12.31 Encounter for screening mammogram for malignant neoplasm of breast (principal); Z85.3 Personal history of malignant neoplasm of breast
CPT/HCPCS: 77061; G0279